=== PATIENT | female | born 1975 | race African-American/Black ===

== ENCOUNTER 2020-10-12 10:05 | Outpatient (REF) | payer OTHER, SELFPAY ==
--- NOTE | ~2020-10-12 | MM_ITS ---
EXAMINATION: MM SCREENING DIGITAL BREAST TOMOSYNTHESIS, BILATERAL CLINICAL INFORMATION: Screening. Asymptomatic. The lifetime risk of breast cancer based on the Tyrer-Cuzick Model is 9%. COMPARISON: Mammography: 10/23/2018, 09/21/2018, 09/11/2015 TECHNIQUE: Digital breast tomosynthesis is performed in both the craniocaudal and mediolateral oblique views along with computer-aided detection (CAD). Synthesized 2D images are generated from the tomosynthesis. Additional bilateral CC and additional bilateral MLO views are provided. FINDINGS: There are scattered areas of fibroglandular density (ACR BI-RADS breast composition Category b). There is fine fibronodular parenchymal pattern similar to prior studies. No developing density or interval dominant nodularity or architectural abnormality. There are no abnormal calcifications. The axilla and skin contours are unremarkable. No significant changes. MM/MM tomosynthesis screening BI IMPRESSION: No mammographic evidence of malignancy. ASSESSMENT: BI-RADS 2: Benign RECOMMENDATION: Routine annual mammography screening. This patient's information was entered into a reminder system with a target due date for their next mammogram.
== END 2020-10-12 10:06 | disposition home or self-care (01) ==
LOC: HO.MAMMO 10:05
PROVIDERS: Visit Provider Nurse Practitioner Primary Care
DX: Z12.31 Encounter for screening mammogram for malignant neoplasm of breast (principal)
CPT/HCPCS: 77063; 77067

== ENCOUNTER 2021-03-10 11:33 | Outpatient (REF) | payer MEDICAID, SELFPAY ==
[2021-03-10 13:44] LABS: COVID-19 Test Positive (Negative); IDNOW Serial# 16C4AD1C
== END 2021-03-10 11:34 | disposition home or self-care (01) ==
LOC: HO.LAB 11:33
PROVIDERS: Visit Provider Internal Medicine
DX: Z20.822 Contact with and (suspected) exposure to COVID-19 (principal)
CPT/HCPCS: 87635; C9803

== ENCOUNTER 2024-10-15 09:06 | Outpatient (REF) | payer MEDICAID, SELFPAY ==
--- OUTSIDE RECORDS SUMMARY | 2006-09-17 20:00 | XMS_ITS | Continuity of Care Document ---
Author Organization deisy [facility] Address [address] [place] [address] Phone Care Team Providers Care Tool Tender Name Role Phone Z-Converted, Provider Unavailable Unavailabl e Medications Medication Instructions Dosage Effective Dates (start - stop) Status Comments Prilosec OTC 20 mg Tab 2 tabs for 1 wk then 1 tab daily - Active Advance Directives Directive Yes / No Effective Date File Name No Information Encounters Encounter Description Practice Location Reason(s) For Visit Diagnoses Date Provider Providers Copied on Encounter [facility], [address] [facility] [address] [address], [place], [place], [id number], [place] tel:[phone] [facility] Abdominal pain, right upper quadrant 7 Z-Convert ed Provider. . [facility], [address] [place] [address] 2,[address], [place], [place], [id number], [place] tel:[phone] 2 Converted Locations No Information 7 Z-Convert [...]
--- NOTE | ~2024-10-15 | XR_ITS ---
EXAMINATION: XR TIBIA AND FIBULA, LEFT CLINICAL INFORMATION: Pain. Other fracture. COMPARISON: None available. TECHNIQUE: AP and lateral views of the left tibia and fibula were obtained. FINDINGS: There is a displaced cortical disruption involving the proximal epiphysis of the fibula resulting in a 1.2 cm gap within the fragments. There is joint space narrowing involving the medial and to a lesser extent lateral compartment of the left knee. The tibia appears intact. Exostosis at the Achilles tendon insertion. Small plantar calcaneal spur. XR/XR tibia fibula LT 2V IMPRESSION: Displaced fracture, likely old, proximal epiphysis of the left fibula. Enthesopathy, Achilles tendon. Bicompartmental osteoarthrosis, left knee. Electronically signed by: Gregory Jacobsen MD 10/15/2024 09:52 AM EDT
--- OUTSIDE RECORDS SUMMARY | 2024-10-15 09:57 | XMS_ITS | Encounter Summary ---
Author Organization [email or web address] [facility] Address [address] [place] [address] Care Team Providers Care Assistant Nurse Manager Name Role Phone Radha Virk Primary Care Provider [phone] Encounter Details Date Type Department Care Team (Late st Contact Info) Description 02/08/[address] [facility] [address] [place] [phone] Taty Addison RN [address] [place] [phone] Social History Tobacco Use Types Packs/Day Years Used Date Smoking Tobacco: Never Assessed Comments Unknown Sex and Gender Information Value Date Recorded Sex Assigned at Female 01/03/2022 10:19 AM EDT Legal Sex Female 10:19 AM EDT Gender Identity Female 01/03/2022 10:19 AM EDT Sexual Orientation Choose not to disclose 2021 10:19 AM EDT documented as of this encounter Plan of Treatment Upcoming Encounters Date Type Department Care Team (Late st Contact Info) Description 12/13/2024 9:15 AM EDT Office Visit [facility] [address] [place] [phone] Radha Virk ANP [address] [place] [address] documented as of this encounter Visit Diagnoses Not on filedocumented in this encounter Care Teams Assistant Nurse Manager Relationship Specialty Start Date End Date Radha Virk ANP [address] [place] [id number] PCP - General Family Medicine 04/10/20 documented as of this encounter
== END 2024-10-15 09:07 | disposition home or self-care (01) ==
LOC: HO.HOSX 09:06
PROVIDERS: Visit Provider Physician Assistant
DX: S82.832A Other fracture of upper and lower end of left fibula, initial encounter for closed fracture (principal); W19.XXXA Unspecified fall, initial encounter
CPT/HCPCS: 73590; 99212

== ENCOUNTER 2024-10-15 09:32 | Outpatient (AMB) | payer MEDICAID, SELFPAY ==
--- NOTE | 2024-10-15 09:46 | MHC.OFFVIS ---
Vital Signs 10/15/24 09:52 Height 5 ft 6 in Weight 270 lb BMI 43.6 Handedness Right Intake Visit Reasons: left displaced fibular head fracture, DOI 09/21/24 Intake Note: Kate is a 49 year old female who presents today as a new patient for evaluation of a left displaced fibular head fracture, DOI 09/21/24. Per [facility] referral, patient was evaluated at [facility] and sent home, diagnosed with a bruised leg - x-rays were fine . She states that she bumped into something and she fell. Patient reported to PCP persistent pain and inability to bear weight due to knee pain. She reports her pain is a 5 or 6 on the pain scale. Patient has tried Tylenol and meloxicam 15mg with mild relief. Allergies Seafood Allergy (Mild, Uncoded 11/21/19 17:37) RASH/SWELLING shellfish Allergy (Mild, Uncoded 10/15/24 09:51) Unknown HPI HPI left displaced fibular head fracture, DOI 09/21/24: Details: Ms. Solano this is a 49-year-old female who presents to the office today for evaluation of a left fibular head injury that she sustained on 09/21/2024 after a mechanical fall. Patient was evaluated at [facility] and diagnosed with a bone contusion per the [facility] referred. Patient reports that she presented to her PCP office after persistent pain and inability to bear weight on the left knee. Her pain has slightly improved as she presents to the office today but she continues to use crutches to assist with ambulation. She has tried Tylenol and meloxicam 15 mg with mild relief. 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 Tenderness to palpation over the fibular head. Full range of motion. NVI. Psych Appearance: grossly normal Mental Status: mental status grossly normal Attitude: cooperative Office Procedures AMB Fracture Care Fracture Billing Code: Fracture Billing Code Assessment & Plan Assessment & Plan (1) Closed fracture of head of left fibula: Code(s): S82.832A - Other fracture of upper and lower end of left fibula, initial encounter for closed fracture Category: Medical Plan Ms. Solano this is a 49-year-old female who presents to the office today for evaluation of a left fibular head injury that she sustained on 09/21/2024 after a mechanical fall. Patient was evaluated at [facility] and diagnosed with a bone contusion per the [facility] referred. Patient reports that she presented to her PCP office after persistent pain and inability to bear weight on the left knee. Her pain has slightly improved as she presents to the office today but she continues to use crutches to assist with ambulation. She has tried Tylenol and meloxicam 15 mg with mild relief. While in the office today, I have recommended the patient continue weight-bearing as tolerated with the use of crutches as needed. The goal is for her to slowly wean off the crutches to full weight-bearing without assistive devices. Patient was encouraged to work on gentle range of motion. Patient was provided an out-of-work note until her follow up appointment in 5 weeks. Follow up in 5 weeks, sooner if needed. X-rays of the left tibia and fibula which were obtained while in the office today and were reviewed by me, Dinah Peterson PA-C, revealed displaced left fibular head fracture. Coding Level of Care Code New Pt Level 3 (90928) Diagnoses Closed fracture of head of left fibula S82.832A CPT Codes Fracture Care - Fracture Billing Code: Fracture Billing Code ([id number])
[2024-10-15 09:52] VITALS: BMI 43.6
== END 2024-10-15 10:35 | disposition home or self-care (01) ==
LOC: HO.HOS 09:32
PROVIDERS: PCP Nurse Practitioner Family; Visit Provider Physician Assistant
DX: S82.832A Other fracture of upper and lower end of left fibula, initial encounter for closed fracture (principal)
CPT/HCPCS: 99203

== ENCOUNTER → 2024-10-15 09:34 | Outpatient (BNV) | payer MEDICAID, SELFPAY | PROVIDERS: Visit Provider Radiology Diagnostic Radiology | DX: S82.832A Other fracture of upper and lower end of left fibula, initial encounter for closed fracture (principal) | CPT/HCPCS: 73590 ==

== ENCOUNTER 2024-11-22 07:57 | Outpatient (REF) | payer MEDICAID, SELFPAY ==
--- OUTSIDE RECORDS SUMMARY | 2006-09-17 20:00 | XMS_ITS | Continuity of Care Document ---
Author Organization deisy [facility] Address [address] [place] [address] Phone Care Team Providers Care Surveillance Officer Name Role Phone Z-Converted, Provider Unavailable Unavailabl e Medications Medication Instructions Dosage Effective Dates (start - stop) Status Comments Prilosec OTC 20 mg Tab 2 tabs for 1 wk then 1 tab daily - Active Advance Directives Directive Yes / No Effective Date File Name No Information Encounters Encounter Description Practice Location Reason(s) For Visit Diagnoses Date Provider Providers Copied on Encounter [facility], [address], [place], [place], [id number], [place] tel:[phone] [facility] Abdominal pain, right upper quadrant 7 Z-Convert ed Provider. . [facility], [address] [place] [address] 2,[address], [place], [place], [id number], [place] tel:[phone] 2 Converted Locations No Information 7 Z-Convert ed Provider. . Family History Family Member Type Diagnosis Age At Onset No Information Payers Payer name Insurance type Covered constitution party ID Authoriza tion(s) No Information Social [...]
--- NOTE | ~2024-11-22 | XR_ITS ---
EXAMINATION: XR TIBIA AND FIBULA, LEFT CLINICAL INFORMATION: Other fracture of upper and lower end of the left fibula COMPARISON: 10/15/2024. TECHNIQUE: AP and lateral views of the left tibia and fibula were obtained. FINDINGS: Redemonstration of avulsion fracture of the proximal fibular head, with approximately 10 mm of distraction. There is minimal comminution. No gross bony healing identified on today's examination. There is no additional fracture or focal bony abnormality. The knee joint demonstrates mild medial compartment joint space narrowing with minimal marginal osteophytic spurs. Mild spurring of the tibial spines. Lateral and patellofemoral compartment is preserved. No knee joint effusion. Soft tissues demonstrate mild prominence overlying the tibial tuberosity, unchanged. There are venous varicosities medially in the proximal leg. Soft tissues otherwise normal. XR/XR tibia fibula LT 2V IMPRESSION: Redemonstration of avulsion fracture of the left fibular head with minimal comminution. No gross bony healing evident on today's examination. Electronically signed by: Steve Bradford MD 11/22/2024 09:12 AM EDT
--- OUTSIDE RECORDS SUMMARY | 2024-11-23 07:59 | XMS_ITS | Clinical Summary ---
Author Organization [employer] Address [address] [place] [address] 7 [place] [address] Care Team Providers Care Liquor Clerk Name Role Phone Nita Virk SAWYER Primary Care Provider [phone] Allergies Active Allergy Reactions Criticality Noted Date [...] Team Description 11/06/2024 Population Health Risk Score [facility] (C3) Department [address] [phone] Provider, Population Health Generic 10/28/2024 Refill [facility] [address] [place] [phone] Sylvain Flores MD Closed fracture fibula, head, left, initial encounter 10/03/[address] [address] Nita Virk ANP Durable Medical Equipment 10/01/2024 9:00 AM EDT Office Visit [facility] [address] [place] [address] Sylvain Flores MD Closed fracture fibula, head, left, initial encounter (Primary Dx); Essential hypertension 10/01/2024 Telephone [facility] [address] [place] [address] Nita Virk ANP Referral 10/01/2024 Travel 09/30/2024 Telephone [facility] [address] [place] [phone] Nita Virk ANP Chart Prep 09/30/[address] [address] Nita Virk ANP Nurse Triage; ER Follow-up [...] Description 12/13/2024 9:15 AM EDT Office Visit [facility] [address] [place] [address] Nita Virk, ANP [address] [place] [address] Health Maintenance Due Date Last Done Comments [...] result details [facility] Procedure: Mammography Report 1 [facility] BI PROCEDURES Final Result * HPV mRNA E6/E7 (05/31/2016 10:15 AM EDT) HPV mRNA E6/E7 Not Detected NOT DETECTED [facility] Comment: This test was performed using the APTIMA(R) HPV Assay ([employer] This assay detects E6/E7 viral messenger RNA (mRNA) from 14 high-risk HPV types (16,18,31,33,35,39,45,51, 52,56,58,59,66,68). For additional information please refer to: http://education.Likeastore.[employer]/faq/RME768a7 (This link is being provided for informational/ educational purposes only.) Test Performed by [facility], [facility], [address] [place] [id number] Gerson Neal M.D., Ph.D., Director of Laboratories , [place] [id number] Please note: Effective 11/16/2015, HPV testing will be performed using [employer]'s APTIMA test which targets mRNA. Detecting mRNA instead of DNA, as in older methods, offers significant improvements in specificity. 05/31/2016 10:1 5 AM EDT us Livia Lopez NP HISTORICAL/NON ORDERABLE LABS Fi nal Result [facility] [address] from Last 3 Months or Most Recently Relevant to Health Maintenance Insurance [facility]SN [facility]IAL [facility] Care Teams Liquor Clerk Relationship Specialty Start Date End Date Nita Virk ANP [address] [place] [phone] PCP - General Family Medicine 04/10/20
--- OUTSIDE RECORDS SUMMARY | 2024-11-23 07:59 | XMS_ITS | Encounter Summary ---
Author Organization [email or web address] [facility] Address [address] [place] [address] Care Team Providers Care Welding Lead Burner Name Role Phone Radha Virk Primary Care Provider [phone] Encounter Details Date Type Department Care Team (Late st Contact Info) Description 02/08/2022 Telephone [facility] [address] [place] [address] Taty Addison RN [address] [place] [phone] Social History Tobacco Use Types Packs/Day Years [...] Description 12/13/2024 9:15 AM EDT Office Visit [facility] [address] [place] [phone] Radha Virk ANP [address] [place] [address] documented as of this encounter Visit Diagnoses Not on filedocumented in this encounter Care Teams Welding Lead Burner Relationship Specialty Start Date End Date Radha Virk ANP [address] [place] [phone] PCP - General Family Medicine 04/10/20 documented as of this encounter
== END 2024-11-22 07:58 | disposition home or self-care (01) ==
LOC: HO.HOSX 07:57
PROVIDERS: Visit Provider Physician Assistant
DX: S82.832D Other fracture of upper and lower end of left fibula, subsequent encounter for closed fracture with routine healing (principal); X58.XXXD Exposure to other specified factors, subsequent encounter
CPT/HCPCS: 73590; 99212

== ENCOUNTER 2024-11-22 08:57 | Outpatient (AMB) | payer MEDICAID, SELFPAY ==
--- NOTE | 2024-11-22 09:11 | MHC.OFFVIS ---
Intake Visit Reasons: OV-left displaced fibular head fracture, DOI 09/21 Intake Note: Kate is a 49 year old female who presents today for a follow up of her left displaced fibular head fracture, DOI 09/21/24. At her last visit she was recommend to continue to weight-bear as tolerated with the use of crutches for balance. The goal is to wean off of the crutches. Patient reports she is still in pain and she is wearing her knee brace also using her crutches all the time for support. Allergies Seafood Allergy (Mild, Uncoded 11/21/19 17:37) RASH/SWELLING shellfish Allergy (Mild, Uncoded 10/15/24 09:51) Unknown HPI HPI OV-left displaced fibular head fracture, DOI 09/21: Details: Ms. Solano is a 49-year-old female who presents to the office today for follow-up of a left proximal at displaced fibular head fracture. Date of injury was 09/21/2024. Patient states that she continues to have pain and difficulty with weight-bearing on the left lower extremity. She also reports some stiffness with flexing and extending the knee. She is using a knee sleeve for some compression and stabilization. She reports that on some occasions she does have giving way of the left knee. 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 Tenderness to palpation over the fibular head. Full range of motion. Unable to attempt posterior drawer due to patient pain and guarding. NVI. Psych Appearance: grossly normal Mental Status: mental status grossly normal Attitude: cooperative Assessment & Plan Assessment & Plan (1) Closed fracture of head of left fibula: Code(s): S82.832A - Other fracture of upper and lower end of left fibula, initial encounter for closed fracture Category: Medical Plan Ms. Solano is a 49-year-old female who presents to the office today for follow-up of a left proximal at displaced fibular head fracture. Date of injury was 09/21/2024. Patient states that she continues to have pain and difficulty with weight-bearing on the left lower extremity. She also reports some stiffness with flexing and extending the knee. She is using a knee sleeve for some compression and stabilization. She reports that on some occasions she does have giving way of the left knee. 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 While in the office today, I have recommended that the patient begin physical therapy to work on gentle range of motion, gait training and weight-bearing as tolerated without the use of crutches. I have also provided the patient with a wrap pop knee brace for some additional stability as she reports episodes of giving way especially with fatigue. Repeat x-rays were obtained in the office today and redemonstrate the displaced proximal fibular head fracture. I also appreciate a possible avulsion fracture avulsion fracture of PCL on x-ray imaging that was obtained. With the patient's continued pain and difficulty with ambulation I have ordered an MRI to further evaluate the integrity of the left knee and surrounding structures. She will follow up in 6 weeks after MRI imaging has been obtained and she has begun physical therapy, sooner if needed. I have given the patient an out-of-work note until follow up. Orders: Orders XR tibia fibula LT 2V Today S82.832A - Other fracture of upper and lower end of left fibula, initial encounter for closed fracture Coding Level of Care Code Est Pt Level 3 (29997) Diagnoses Closed fracture of head of left fibula S82.832A
--- OUTSIDE RECORDS SUMMARY | 2024-11-22 09:40 | XMS_ITS | Clinical Summary ---
Author Organization [employer] Address [address] [place] [address] 7 [place] [address] Care Team Providers Care Turn Out Name Role Phone Nita Virk SAWYER Primary Care Provider [phone] Allergies Active Allergy Reactions Criticality Noted Date Comments Fish-Derived Products Hives Medications Blood Pressure kitIndications: Benign essential HTN 1 kit in the morning. 1 kit 3 Active hydroCHLOROthia zide (Microzide) 12.5 MG capsule Take 12.5 mg by mouth in the morning. 3 Active meloxicam (Mobic) 15 MG tabletIndicatio ns:Closed fracture fibula, head, left, initial encounter TAKE 1 TABLET (15 MG) BY MOUTH ONCE PER DAY. 30 tablet 5 Active meloxicam (Mobic) 15 MG tabletIndicatio ns:Closed fracture fibula, head, left, initial encounter Take 1 tablet (15 mg) by mouth Once per day. 30 tablet 5 10/29/19 25 Discontinued Active Problems Problem Noted Date Diagnosed Date Closed fracture fibula, head, left, initial enco unter 10/01/2024 Assessment & Plan (10/01/2024 9:22 AM EDT): Patient of nita Virk seen today for an ER follow up Pt seen 09/21/2024 at [facility] x-rays showed: a Displaced fibular head fracture with adjacent soft tissue swelling. The ER notes states that patient was sent home with a diagnosis of bruised leg and that x-rays were fine. Pt here with c/o persistent pain Plan immobilization with hinged knee brace -Non weight bearing 4-6 weeks -[facility] Ortho consult for consideration of surgical intervention Essential hypertension 08/31/2017 Assessment & Plan (10/01/2024 9:33 AM EDT): BP elevated due to pain Will start an NSAID Vitamin D deficiency 01/07/2016 Morbid obesity 09/11/2015 Encounters Date Type Department Care Team Description 11/06/2024 Population Health Risk Score [facility] (C3) Department [address] [id number] Provider, Population Health Generic 10/28/2024 Refill [facility] [address] [place] [phone] Sylvain Flores MD Closed fracture fibula, head, left, initial encounter 10/03/[address] [address] Nita Virk ANP Durable Medical Equipment 10/01/2024 9:00 AM EDT Office Visit [facility] [address] [place] [address] Sylvain Flores MD Closed fracture fibula, head, left, initial encounter (Primary Dx); Essential hypertension 10/01/2024 Telephone [facility] [address] [place] [address] Nita Virk ANP Referral 10/01/2024 Travel 09/30/2024 Telephone [facility] [address] [place] [address] Nita Virk ANP Chart Prep 09/30/[address] [address] Nita Virk ANP Nurse Triage; ER Follow-up from Last 3 Months Immunizations Immunization Administration Dates Next Due Hep B, Adolescent or Pediatric 08/12/2010 Hep B, adult 08/19/2013,11/09/2012 Influenza injectable quadriv alent IIV4 with preservative 01/07/2016 Influenza injectable quadrivalent preservative f ree 12/03/2020 Influenza, Split (incl. purified surface antigen ) 11/09/2012 MMR 09/15/2009 Pfizer Covid-19 Vaccine 12+ jimenez-sucrose ([place] C ap) 05/21/2021 TD (adult), 2 Lf tetanus tox oid, preservative free, adsorbed 12/03/2020,09/09/2008 Tdap 08/12/2010 Varicella 09/15/2009 Social History Tobacco Use Types Packs/Day Years Used Date Smoking Tobacco: Never Smokeless Tobacco: Never Tobacco Cessation:Counseling Given: Not Answered Alcohol Use Standard Drinks/Week Comments Never 0 (1 standard drink = 0.6 oz pur e alcohol) Comments Unknown Sex and Gender Information Value Date Recorded Sex Assigned at Female 01/03/2022 10:19 AM EDT Legal Sex Female 10:19 AM EDT Gender Identity Female 01/03/2022 10:19 AM EDT Sexual Orientation Choose not to disclose 2021 10:19 AM EDT Last Filed Vital Signs Vital Sign Reading Time Taken Comments Blood Pressure 148/86 10/01/2024 9:32 AM EDT Pulse 83 10/01/2024 9:16 AM EDT Temperature 37.2 C (98.9 F) 10/01/2024 9:16 AM EDT Respiratory Rate 20 10/01/2024 9:16 AM EDT Oxygen Saturation 97% 10/01/2024 9:16 AM EDT Inhaled Oxygen Concentration - - Weight 121 kg (267 lb 6.4 oz) 08/05/2022 3:09 PM EDT Height 165.7 cm (5' 5.24 ) 08/05/2022 3:09 PM ED T Body Mass Index 44.17 08/05/2022 3:09 PM EDT Plan of Treatment Upcoming Encounters Date Type Department Care Team (Late st Contact Info) Description 12/13/2024 9:15 AM EDT Office Visit [facility] [address] [place] [address] Nita Virk, ANP [address] [place] [address] Health Maintenance Due Date Last Done Comments CT Colonography 1973 Colonoscopy 1973 Colorectal Cancer Screening 1973 Depression Screening 1973 FIT DNA/Cologuard 1973 FIT 1973 FOBT 1973 HIV Screening 1973 Lipid Panel 1973 SDOH Screening 1973 Sigmoidoscopy 1973 Alcohol/Substance Use Screening 1985 Family Planning (PISQ) 01/06/1988 Hepatitis C Screening 1991 Pap Smear 1994 Hepatitis B Vaccines (3 of 3 - 19+ 3-dose series) 10/14/2013 08/19/2013, 11/09/2012, 08/12/2010 Cervical Cancer Screening 05/31/2021 HPV/Cotest 05/31/2021 05/31/2016 Mammogram 10/12/2022 10/12/2020, 10/23/2018, 09/24/2018 Pneumococcal Vaccine: 50+ Years (1 of 1 - PCV) 2023 Zoster Vaccines (1 of 2) 2023 COVID-19 Vaccine (4 - 2024-2 6 season) 2024 05/21/2021, 11/05/2020, 10/15/2020 Influenza Vaccine (#1) 2024 , 01/07/2016, 11/09/2012 Disability Screening 10/01/2025 10/01/2024 Tobacco Screening 10/01/2025 10/01/2024 DTaP/Tdap/Td Vaccines (3 - T d or Tdap) 12/03/2030 12/03/2020, 08/12/2010, 09/09/2008 RSV Patients and Patients Aged 60 years or older (1 - 1-dose 75+ series) 01/06/2048 HIB Vaccines Aged Out No longer eligi ble based on patient's age to complete this topic HPV Vaccines Aged Out No longer eligi ble based on patient's age to complete this topic Hepatitis A Vaccines Aged Out No long er eligible based on patient's age to complete this topic IPV Vaccines Aged Out No longer eligi ble based on patient's age to complete this topic Meningococcal B Vaccine Aged Out No l onger eligible based on patient's age to complete this topic Meningococcal Vaccine Aged Out No carmel destin eligible based on patient's age to complete this topic RSV under 20 months Aged Out No longe r eligible based on patient's age to complete this topic Rotavirus Vaccines Aged Out No longer eligible based on patient's age to complete this topic Procedures Procedure Name Priority Date/Time Associated Diagnosis Comments MAMMOGRAM GENERIC Routine 10/12/2020 10: 00 AM EDT ZZZ HISTORICAL HPV MRNA E6/E7 Routine 05/31/2016 10:15 AM EDT from Last 3 Months or Most Recently Relevant to Health Maintenance Results * Mammography Report 1 (10/12/2020 10:00 AM EDT) Anatomical Region Laterality Modality Breast Bilateral Mammography 10/12/2020 10:0 0 AM EDT Narrative 10/13/2020 9:02 AM EDT Refer to the Notes tab for result details Legacy Procedure: Mammography Report 1 Procedure Note Provider, MD Guevara - 05/29/2022 Refer to the Notes tab for result details Legacy Procedure: Mammography Report 1 [facility] BI PROCEDURES Final Result * HPV mRNA E6/E7 (05/31/2016 10:15 AM EDT) HPV mRNA E6/E7 Not Detected NOT DETECTED [facility] Comment: This test was performed using the APTIMA(R) HPV Assay ([employer] This assay detects E6/E7 viral messenger RNA (mRNA) from 14 high-risk HPV types (16,18,31,33,35,39,45,51, 52,56,58,59,66,68). For additional information please refer to: http://education.MySQUAR.Sidelines/faq/JQB404l2 (This link is being provided for informational/ educational purposes only.) Test Performed by [facility], [facility], [address] [place] [id number] Gerson Neal M.D., Ph.D., Director of Laboratories , [place] [id number] Please note: Effective 11/16/2015, HPV testing will be performed using [employer]'s APTIMA test which targets mRNA. Detecting mRNA instead of DNA, as in older methods, offers significant improvements in specificity. 05/31/2016 10:1 5 AM EDT us Livia Lopez NP HISTORICAL/NON ORDERABLE LABS Fi nal Result [facility] [address] from Last 3 Months or Most Recently Relevant to Health Maintenance Insurance HSN PARTIAL [facility] Care Teams Turn Out Relationship Specialty Start Date End Date Nita Virk ANP [address] [place] [phone] PCP - General Family Medicine 04/10/20
--- OUTSIDE RECORDS SUMMARY | 2024-11-22 09:40 | XMS_ITS | Encounter Summary ---
Author Organization [employer] [facility] Address [address] [place] [address] Care Team Providers Care Machining Department Supervisor Name Role Phone Radha Virk Primary Care Provider [phone] Encounter Details Date Type Department Care Team (Late st Contact Info) Description 02/08/2022 Telephone [facility] [address] [place] [phone] Taty Addison RN [address] [place] [phone] Social History Tobacco Use Types Packs/Day Years [...] Description 12/13/2024 9:15 AM EDT Office Visit [facility] [address] [place] [phone] Radha Virk ANP [address] [place] [address] documented as of this encounter Visit Diagnoses Not on filedocumented in this encounter Care Teams Machining Department Supervisor Relationship Specialty Start Date End Date Radha Virk ANP [address] [place] [phone] PCP - General Family Medicine 04/10/20 documented as of this encounter
== END 2024-11-22 09:48 | disposition home or self-care (01) ==
LOC: HO.HOS 08:57
PROVIDERS: Visit Provider Physician Assistant
DX: S82.832A Other fracture of upper and lower end of left fibula, initial encounter for closed fracture (principal)
CPT/HCPCS: 99213

== ENCOUNTER → 2024-11-22 08:58 | Outpatient (BNV) | payer MEDICAID, SELFPAY | PROVIDERS: Visit Provider Radiology Diagnostic Radiology | DX: S82.832D Other fracture of upper and lower end of left fibula, subsequent encounter for closed fracture with routine healing (principal) | CPT/HCPCS: 73590 ==

== ENCOUNTER 2024-12-16 11:43 | Outpatient (REF) | payer MEDICAID, SELFPAY ==
--- OUTSIDE RECORDS SUMMARY | 2024-12-13 09:15 | XMS_ITS | Encounter Summary ---
Author Organization [email or web address] Address [address] [place] [address] [address] [address] Care Team Providers Care Label Stitcher Name Role Phone Radha Virk Primary Care Provider [phone] Reason for Referral * Imaging (Routine) - Authorized Specialty Diagnoses / Procedures Referred By Randy drake Referred To Contact Radiology Diagnoses Screening mammogram for breast cancer Procedures BI Mammogram Screening Bilateral Radha Virk ANP [address] [place] [address] Phone: tel: fax: [address] Phone: tel: fax: Referral ID Status Reason Start Date Expiration Date V isits Requested Visits Authorized [id number] Authorized 12/13/2024 12/13/2025 1 1 * Imaging (Routine) - Authorized Specialty Diagnoses / Procedures Referred By Randy drake Referred To Contact Radiology Diagnoses Closed fracture of head of left fibula with routine healing, subsequent encounter Premature menopause Procedures BD DEXA Axial Radha Virk ANP [address] [place] [address] Phone: tel: fax: [address] Phone: tel: fax: Referral ID Status Reason Start Date Expiration Date V isits Requested Visits Authorized [id number] Authorized 12/13/2024 12/13/2025 1 1 Reason for Visit * Reason Comments Follow-up Encounter Details Date Type Department Care Team (Saleem durham Contact Info) Description 12/13/2024 9:15 AM EDT Office Visit [facility] [address] [place] [address] Radha Virk ANP [address] [place] [address] Closed fracture of head of left fibula with routine healing, subsequent encounter (Primary Dx); Healthcare maintenance; Screening for cervical cancer; Screening mammogram for breast cancer; Need for hepatitis B screening test; Routine screening for STI (sexually transmitted infection); Lipid screening; Essential hypertension; Vitamin D deficiency; Benign essential HTN; Premature menopause Social History Tobacco Use Types Packs/Day Years Used Date Smoking Tobacco: Never Smokeless Tobacco: Never Alcohol Use Standard Drinks/Week Comments Never 0 (1 standard drink = 0.6 oz pur e alcohol) Depression Answer Date Recorded Patient Health Questionnaire-9 Score 1 12/13/2024 Patient Health Questionnaire-9 Score 1 12/13/2024 Last PHQ-9: Questionnaire Data Not on file 1 Housing Stability Answer Date Recorded What is your housing situation today? I have [employer] 12/13/[address] you li ve. Do you have problems with any of the following? None of the above 12/13/2024 Food Insecurity Answer Date Recorded Within the past 12 months, y ou worried that your food would run out before you got money to buy more: Never True 12/13/2024 Within the past 12 months,th e food you bought just didn't last and you didn't have enough money to get more: Never True 12/2024 Transportation Answer Date Recorded In the past 12 months, has l ack of transportation kept you from medical appts, meetings, work or from getting things needed for daily living? No 12/13/2024 Utilities Answer Date Recorded In the past 12 months, has t he electric, gas, oil or water company threatened to shut off services in your home? No 12/13/2024 Depression Answer Date Recorded Patient Health Questionnaire-2 Score 0 12/13/2024 Internet Access Answer Date Recorded Internet Access Q1 Yes 12/13/2024 Internet Access Q2 Not on file 12/13/2024 Comments Unknown Sex and Gender Information Value Date Recorded Sex Assigned at Female 01/03/2022 10:19 AM EDT Legal Sex Female 10:19 AM EDT Gender Identity Female 01/03/2022 10:19 AM EDT Sexual Orientation Choose not to disclose 2021 10:19 AM EDT documented as of this encounter Last Filed Vital Signs Vital Sign Reading Time Taken Comments Blood Pressure 150/90 12/13/2024 10:04 AM EDT Pulse 75 12/13/2024 9:42 AM EDT Temperature 36.7 C (98.1 F) 12/13/2024 9:42 AM EDT Respiratory Rate 12 12/13/2024 9:42 AM EDT Oxygen Saturation 97% 12/13/2024 9:42 AM EDT Inhaled Oxygen Concentration - - Weight 124 kg (274 lb 2 oz) 12/13/2024 9:42 AM E DT Height 165.7 cm (5' 5.24 ) 12/13/2024 9:42 AM ED T Body Mass Index 45.28 12/13/2024 9:42 AM EDT documented in this encounter Functional Status * Over the past 2 weeks, how often have you been bothered by any of the following problems? Question Answer Date of Assessment Author Patient Health Questionnaire -2 Score 0 12/13/2024 10:47 AM EDT Kwaku Brooks MA * Little interest or pleasure in doing things Answer Date of Assessment Author Not at all 12/13/2024 10:47 AM EDT Kwaku Brooks MA * Feeling down, depressed, or hopeless Answer Date of Assessment Author Not at all 12/13/2024 10:47 AM EDT Kwaku Brooks MA * Trouble falling or staying asleep, or sleeping too much Answer Date of Assessment Author Not at all 12/13/2024 10:47 AM EDT Kwaku Brooks MA * Feeling tired or having little energy Answer Date of Assessment Author Several days 12/13/2024 10:47 AM EDT Kwaku Brooks MA * Poor appetite or overeating Answer Date of Assessment Author Not at all 12/13/2024 10:47 AM Kwaku Bell MA * Feeling bad about yourself - or that you are a failure or have let yourself or your family down Answer Date of Assessment Author Not at all 12/13/2024 10:47 AM Kwaku Bell MA * Trouble concentrating on things, such as reading the newspaper or watching television Answer Date of Assessment Author Not at all 12/13/2024 10:47 AM Kwaku Bell MA * Moving or speaking so slowly that other people could have noticed? Or the opposite - being so fidgety or restless that you have been moving around a lot more than usual. Answer Date of Assessment Author Not at all 12/13/2024 10:47 AM Kwaku Bell MA * Thoughts that you would be better off or hurting yourself in some way Answer Date of Assessment Author Not at all 12/13/2024 10:47 AM Kwaku Bell MA * Patient Health Questionnaire-9 Score Answer Date of Assessment Author 1 12/13/2024 10:47 AM Kwaku Bell MA * How difficult have these problems made it for you to do your work, take care of things at home, or get along with other people? Answer Date of Assessment Author Not difficult at all 12/13/2024 10:47 AM Kwaku Li MA * Over the last 2 weeks, how often have you been bothered by any of the following problems? Question Answer Date of Assessment Author Feeling nervous, anxious, or on edge 0 12/13/2024 10:47 AM Kwaku Bell MA Not being able to stop or co ntrol worrying 0 12/13/2024 10:47 AM Kwaku Bell MA Worrying too much about diff erent things 0 12/13/2024 10:47 AM Kwaku Bell MA Trouble relaxing 0 12/13/2024 10:47 AM Kwaku Bell MA Being so restless that it is hard to sit still 0 12/13/2024 10:47 AM Kwaku Bell MA Becoming easily annoyed or irritable 0 12/13/2024 10:47 AM EDT Kwaku Brooks MA Feeling afraid as if somethi ng awful might happen 0 12/13/2024 10:47 AM EDT Kwaku Brooks MA PAULO-7 Total Score 0 12/13/2024 10:47 AM EDT Kwaku Brooks MA documented as of this encounter Patient Instructions * Patient Instructions* SAWYER Peña - 12/13/2024 9:15 AM EDT Based on our discussion, I have outlined the following instructions for you: - Keep putting a small amount of weight on your left leg, as you have been told. Continue plan per orthopedics. - Get a bone density scan to check your bone strength and risk for osteoporosis. Someone from [facility] will call to schedule this. If you do not hear from them, call: [facility] Centralized [phone] - Get fasting blood work done - We will discuss colon cancer screening at follow-up visit - we will likely need to re-start blood pressure medication, but please measure your blood pressureat home and write it down, a nurse will call you in 2 weeks to review the numbers. Eat a low salt diet. - Use the blood pressure monitor at home and share your readings during the nursing follow-up call.Goal is to have blood pressure at 120/80 mmHg or less. - Keep taking your vitamin D3 supplement. Next appointment(s): - Pap smear with controls project engineer - Mammogram - Bone density scan at hospital Thank you again for your visit, and we look forward to supporting you in your journey to better health. documented in this encounter Progress Notes * SAWYER Peña - 12/13/2024 9:15 AM EDT Subjective Patient ID: Kate Solano is a 49 y.o. female who presents for f/u. HPI PM hypertension PT last visit w/ 08/2022 Recent visit w/ Dr. Tracey 10/01/24 s/p ED visit [facility] 09/22/24 for L displaced fibula head fx, seen by ortho who has since recommended pt return to weight bearing Due for all HM activities Mammo & DEXA - accepts Pap - wants CNM Crc screening - defers today HIV/HCV IZ PCV20, flu, COVID, shingrix, hep b status unk Declines IZ today Kate Solano, 49 years Knee Pain and Injury - History of knee issues prior to visit - Recent fall resulting in fibula fracture - Currently using crutches - Advised by orthopedics to avoid putting too much weight on leg Hypertension - History of high blood pressure - Previously prescribed hydrochlorothiazide and losartan, but has not been taking blood pressure medications for a while - Reports feeling well despite not taking medication Pruritus - Reports generalized body itchiness Menopause - Menstrual periods stopped around [id number], at age 40-41 - Early menopause diagnosed - Denies receiving hormone therapy Misc - Reports feeling sick after previous flu vaccinations - Denies current use of blood pressure medications - Currently taking meloxicam and vitamin D3 Review of Systems Objective BP (!) 150/90 (BP Location: Left arm, Patient Position: Sitting, BP Cuff Size: Large adult) Pulse75 Temp 98.1 ??F (36.7 ??C) (Oral) Resp 12 Ht 5' 5.24 (1.657 m) Wt 274 lb 2 oz (124 kg) SpO2 97% BMI 45.28 kg/m?? Physical Exam Constitutional: General: She is not in acute distress. Appearance: Normal appearance. She is obese. She is not ill-appearing. HENT: Head: Normocephalic and atraumatic. Eyes: General: No scleral icterus. Extraocular Movements: Extraocular movements intact. Pupils: Pupils are equal, round, and reactive to light. Cardiovascular: Rate and Rhythm: Normal rate and regular rhythm. Pulmonary: Effort: Pulmonary effort is normal. No accessory muscle usage or respiratory distress. Neurological: Mental Status: She is alert and oriented to person, place, and time. Psychiatric: Mood and Affect: Mood normal. Behavior: Behavior normal. Assessment/Plan Diagnoses and all orders for this visit: Closed fracture of head of left fibula with routine healing, subsequent encounter - Vitamin D, 25-Hydroxy, Total, Immunoassay; Future - BD DEXA Axial; Future Healthcare maintenance - Hemoglobin A1c; Future Screening for cervical cancer To be scheduled w/ CNM per pt preference Screening mammogram for breast cancer - BI Mammogram Screening Bilateral; Future Need for hepatitis B screening test - Hepatitis B Core Antibody, Total; Future - Hepatitis B surface antigen, EIA; Future - Hepatitis B Surface Antibody, Qualitative; Future Routine screening for STI (sexually transmitted infection) - Hepatitis C Antibody with Reflex to HCV, RNA, Quantitative, Real-Time PCR; Future - HIV-1/2 Antigen and Antibodies, Fourth Generation, with Reflexes; Future Lipid screening - Lipid Panel, Standard; Future Essential hypertension - Comprehensive Metabolic Panel; Future - Albumin, Random Urine W/Creatinine; Future Vitamin D deficiency - Vitamin D, 25-Hydroxy, Total, Immunoassay; Future Benign essential HTN - Blood Pressure kit; 1 kit Once per day. Premature menopause - BD DEXA Axial; Future Assessment & Plan Closed fracture of head of left fibula with routine healing, subsequent encounter: - Healing fracture of left fibula following fall, concern for bone fragility due to low-impact mechanism. - Continue limited weight-bearing as per orthopedics. Bone density scan ordered to evaluate for osteoporosis. Healthcare maintenance: - Due for multiple routine health maintenance screenings. - Schedule Pap smear with female provider. Ordered screening mammogram. Ordered fasting blood work including HIV and hepatitis C testing. Recommended colonoscopy due to age. She wants to defer c-scope discussion to follow-up. Screening for cervical cancer: - Due for cervical cancer screening; last Pap smear in 2019. - Pap smear to be performed by controls project engineer. Screening mammogram for breast cancer: - Due for screening mammogram. - Mammogram ordered. Routine screening for STI (sexually transmitted infection): - HIV and hepatitis C screening recommended as part of routine STI screening. - HIV and hepatitis C tests included in blood work. Lipid screening: - Due for routine lipid screening. - Lipid panel included in fasting blood work. Essential hypertension: - Persistent elevated blood pressure, not currently on antihypertensive medication. - Hydrochlorothiazide prescription likely will be refilled, declines this today b/c she feels well.Stressed this does not indicate BP control, hypertension as 'silent killer'. She will check home monitoring. Nursing follow-up call scheduled to review home blood pressure readings. Goal blood pressure set at 120/80 mmHg. Plan to re-start hydrochlorothiazide at 25mg if above 120/80 At end of appointment pt states does want to re-start, will send refill. Vitamin D deficiency: - Taking vitamin D3 supplementation. Benign essential HTN: - Diagnosis of benign essential hypertension confirmed. - See Essential hypertension. Premature menopause: - Menopause occurred at age 40-41, increasing risk for osteoporosis. - Bone density scan ordered to assess for osteoporosis. Prescription - Hydrochlorothiazide, refill, daily Appointments - Pap smear with controls project engineer - Mammogram - Bone density scan at hospital This note was drafted using Ambient (AI) technology. The patient/patient's guardian has been informed and has consented to the use of this technology: Yes documented in this encounter Plan of Treatment Upcoming Encounters Date Type Department Care Team (Late st Contact Info) Description 12/30/2024 9:30 AM EDT Clinical Support [facility] [address] [place] [id number] 01/16/2025 9:00 AM EST Procedure Visit [address] [id number] Yisel Viera, SY [address] [place] [address] Scheduled Orders Name Type Priority Associated Diagnoses Orde r Schedule Hepatitis B Core Antibody, Total Lab Routine Need for hepatitis B screening test Expected: 12/13/2024 (Approximate), Expires: 12/13/2025 Hepatitis B surface antigen, EIA Lab Routine Need for hepatitis B screening test Expected: 12/13/2024 (Approximate), Expires: 12/13/2025 Hepatitis B Surface Antibody, Qualitative Lab Routine Need for hepatitis B screening test Expected: 12/13/2024 (Approximate), Expires: 12/13/2025 Hepatitis C Antibody with Reflex to HCV, RNA, Quantitative, Real-Time PCR Lab Routine Routine screening for STI (sexually transmitted infection) Expected: 12/13/2024 (Approximate), Expires: 12/13/2025 HIV-1/2 Antigen and Antibodies, Fourth Generation, with Reflexes Lab Routine Routine screening for STI (sexually transmitted infection) Expected: 12/13/2024 (Approximate), Expires: 12/13/2025 Lipid Panel, Standard Lab Routine Lipid screening Expected: 12/13/2024 (Approximate), Expires: 12/13/2025 Comprehensive Metabolic Panel Lab Routine Essential hypertension Expected: 12/13/2024 (Approximate), Expires: 12/13/2025 Albumin, Random Urine W/Creatinine Lab Routine Essential hypertension Expected: 12/13/2024 (Approximate), Expires: 12/13/2025 Hemoglobin A1c Lab Routine Healthcare maintenance Expected: 12/13/2024 (Approximate), Expires: 12/13/2025 Vitamin D, 25-Hydroxy, Total, Immunoassay Lab Routine Closed fracture of head of left fibula with routine healing, subsequent encounter Vitamin D deficiency Expected: 12/13/2024 (Approximate), Expires: 12/13/2025 BD DEXA Axial Imaging Routine Closed fracture of head of left fibula with routine healing, subsequent encounter Premature menopause Expected: 12/13/2024 (Approximate), Expires: 12/13/2025 BI Mammogram Screening Bilateral Imaging Routine Screening mammogram for breast cancer Expected: 12/13/2024, Expires: 12/14/2025 documented as of this encounter Visit Diagnoses Diagnosis Closed fracture of head of left fibula with routine healing, subsequent encounter- Primary Healthcare maintenance Screening for cervical cancer Screening for malignant neoplasm of the cervix Screening mammogram for breast cancer Need for hepatitis B screening test Routine screening for STI (sexually transmitted infection) Screening examination for venereal disease Lipid screening Screening for lipoid disorders Essential hypertension Unspecified essential hypertension Vitamin D deficiency Benign essential HTN Premature menopause documented in this encounter Additional Health Concerns Assessment Noted Time PHQ-9 Depression Total Score: 1 12/14/19 25 10:47 AM EDT documented as of this encounter Care Teams Label Stitcher Relationship Specialty Start Date End Date Radha Virk ANP [address] [place] [id number] PCP - General Family Medicine 04/10/20 documented as of this encounter
--- OUTSIDE RECORDS SUMMARY | 2024-12-16 11:47 | XMS_ITS | Encounter Summary ---
Author Organization [employer] Address [address] [facility] [address] [place] [address] Care Team Providers Care Economic Historian Name Role Phone Radha Virk SAWYER Primary Care Provider [phone] Encounter Details Date Type Department Care Team (Latest Contact Info) Description 12/13/2024 Travel Social History Tobacco Use Types Packs/Day Years [...] AM EDT documented as of this encounter Functional Status * Over the [...] AM EDT Kwaku Brooks MA * Feeling bad about yourself - or that you are a failure or have let yourself or your family down Answer Date of Assessment Author Not at all 12/13/2024 10:47 AM EDT Kwaku Brooks MA * Trouble concentrating on things, such as reading the newspaper or watching television Answer Date of Assessment Author Not at all 12/13/2024 10:47 AM EDT Kwaku Brooks MA * Moving or speaking so slowly that other people could have noticed? Or the opposite - being so fidgety or restless that you have been moving around a lot more than usual. Answer Date of Assessment Author Not at all 12/13/2024 10:47 AM EDT Kwaku Brooks MA * Thoughts that you would be better off or hurting yourself in some way Answer Date of Assessment Author Not at all 12/13/2024 10:47 AM TONIOT Kwaku Brooks MA * Patient Health Questionnaire-9 Score Answer Date of Assessment Author 1 12/13/2024 10:47 AM EDT Kwaku Brooks MA * How difficult have these problems made it for you to do your work, take care of things at home, or get along with other people? Answer Date of Assessment Author Not difficult at all 12/13/2024 10:47 AM EDT Kwaku Soria MA * Over the last 2 weeks, how often have you been bothered by any of the following problems? Question Answer Date of Assessment Author Feeling nervous, anxious, or on edge 0 12/13/2024 10:47 AM EDT Kwaku Brooks MA Not being able to stop or co ntrol worrying 0 12/13/2024 10:47 AM EDT Kwaku Brooks MA Worrying too much about diff erent things 0 12/13/2024 10:47 AM TONIOT Kwaku Brooks MA Trouble relaxing 0 12/13/2024 10:47 AM TONIOT Kwaku Brooks MA Being so restless that it is hard to sit still 0 12/13/2024 10:47 AM TONIOT Kwaku Brooks MA Becoming easily annoyed or irritable 0 12/13/2024 10:47 AM EDT Kwaku Brooks MA Feeling afraid as if somethi ng awful might happen 0 12/13/2024 10:47 AM EDT Kwaku Brooks MA PAULO-7 Total Score 0 12/13/2024 10:47 AM Kwaku Bell MA documented as of this encounter Plan of Treatment Upcoming Encounters Date Type Department Care Team (Late st Contact Info) Description 12/30/2024 9:30 AM EDT Clinical Support [facility] [address] [place] [phone] 01/16/2025 9:00 AM EST Procedure Visit [facility] [address] [place] [address] [place] [address] Yisel Viera CNM [address] [place] [address] documented as of this encounter Visit Diagnoses Not on filedocumented in this encounter Additional Health Concerns Assessment Noted Time PHQ-9 Depression Total Score: 1 12/14/19 25 10:47 AM EDT documented as of this encounter Care Teams Economic Historian Relationship Specialty Start Date End Date Radha Virk ANP [address] [place] [address] PCP - General Family Medicine 04/10/20 documented as of this encounter
--- OUTSIDE RECORDS SUMMARY | 2024-12-16 11:47 | XMS_ITS | Clinical Summary ---
Author Organization [employer] Address [address] [place] [address] 7 [place] [address] Care Team Providers Care Tableau Architect Name Role Phone Nita Virk SAWYER Primary Care Provider [phone] Allergies Active Allergy Reactions Criticality Noted Date Comments Fish Protein-Containing Drug Products Hives Medications meloxicam (Mobic) 15 MG tabletIndication s:Closed fracture fibula, head, left, initial encounter TAKE 1 TABLET (15 MG) BY MOUTH ONCE PER DAY. 30 tablet 10/29/19 25 Active Blood Pressure kitIndications:B enign essential HTN 1 kit Once per day. 1 kit 12/14/19 25 Active hydroCHLOROthiaz olga (HYDRODiuril) 25 MG tabletIndication s:Essential hypertension Take 1 tablet (25 mg) by mouth Once per day. 90 tablet 1 12/14/19 25 026 Active Blood Pressure kitIndications:B enign essential HTN 1 kit in the morning. 1 kit 08/06/19 23 025 Discontinued(Re order (will not trigger notification to Pharmacy)) hydroCHLOROthiaz olga (Microzide) 12.5 MG capsule Take 12.5 mg by mouth in the morning. 07/24/19 23 025 Discontinued losartan (Cozaar) 50 MG tablet Take 1 tablet by mouth at bed time. 12/04/19 21 025 Discontinued(Th erapy completed) Active Problems Problem Noted Date Diagnosed Date Closed fracture fibula, head, left, initial enco unter 10/01/2024 Assessment & Plan (10/01/2024 9:22 AM EDT): Patient of nita Virk seen today for an ER follow up Pt seen 09/21/2024 at [facility] x-rays showed: a Displaced fibular head fracture [...] NSAID Vitamin D deficiency 01/07/2016 Morbid obesity (CMS/HCC) 09/11/2015 Encounters Date Type Department Care Team Description 12/13/2024 9:15 AM EDT Office Visit [facility] [address] [place] [address] Nita Virk ANP Closed fracture of head of left fibula with routine healing, subsequent encounter (Primary Dx); Healthcare maintenance; Screening for cervical cancer; Screening mammogram for breast cancer; Need for hepatitis B screening test; Routine screening for STI (sexually transmitted infection); Lipid screening; Essential hypertension; Vitamin D deficiency; Benign essential HTN; Premature menopause 12/13/2024 Travel 12/12/2024 Travel 12/12/2024 Telephone [facility] [address] [place] [address] Niat Virk ANP chart prep 11/06/2024 Population Health Risk Score [facility] () Department [address] [place] [address] [phone] Provider, Population Health Generic 10/28/2024 Refill [facility] [address] [place] [address] Sylvian Flores MD Closed fracture fibula, head, left, initial encounter 10/03/2024 Telephone [facility] [address] [place] [address] Nita Virk ANP Durable Medical Equipment 10/01/2024 9:00 AM EDT Office Visit [facility] [address] [place] [address] Sylvain Flores MD Closed fracture fibula, head, left, initial encounter (Primary Dx); Essential hypertension 10/01/2024 Telephone [facility] [address] [place] [address] Nita Virk ANP Referral 10/01/2024 Travel 09/30/2024 Telephone [facility] [address] [place], [place] [phone] Nita Virk ANP Chart Prep 09/30/2024 Telephone [facility] [address] [place], [place] [phone] Nita Virk ANP Nurse Triage; ER Follow-up [...] your housing situation today? I have serenity freddy 12/13/[address] you li [...] Mass Index 45.28 12/13/2024 9:42 AM EDT Plan of Treatment Upcoming Encounters Date Type Department Care Team (Late st Contact Info) Description 12/30/2024 9:30 AM EDT Clinical Support [facility] [address] [place] [phone] 01/16/2025 9:00 AM EST Procedure Visit [facility] [address] [place] [phone] Yisel Viera CNM [address] [place] [address] Health Maintenance Due Date Last Done Comments CT Colonography 1973 Colonoscopy 1973 Colorectal Cancer Screening 1973 FIT DNA/Cologuard 1973 FIT 1973 FOBT 1973 HIV Screening 1973 Lipid Panel 1973 Sigmoidoscopy 1973 Family Planning (PISQ) 01/06/1988 Hepatitis C Screening [...] Influenza Vaccine (#1) 2024 , 01/07/2016, 11/09/2012 Alcohol/Substance Use Screening 12/13/2025 12/13/2024 Depression Screening 12/13/2025 12/13/2024, 12/13/2024 Disability Screening 12/13/2025 12/13/2024 SDOH Screening 12/13/2025 12/13/2024 Tobacco Screening 12/13/2025 12/13/2024 DTaP/Tdap/Td Vaccines (3 - T d or [...] result details Legacy Procedure: Mammography Report 1 [facility] IM BI PROCEDURES Final Result * HPV mRNA E6/E7 (05/31/2016 10:15 AM EDT) HPV mRNA E6/E7 Not Detected NOT DETECTED [facility] Comment: This test was performed using the APTIMA(R) HPV Assay ([employer] This assay detects E6/E7 viral messenger RNA (mRNA) from 14 high-risk HPV types (16,18,31,33,35,39,45,51, 52,56,58,59,66,68). For additional information please refer to: http://education.[employer]/faq/HWD242f7 (This link is being provided for informational/ educational purposes only.) Test Performed by [facility], [facility], [address] [place] [address] Gerson Neal M.D., Ph.D., Director of Laboratories , [facility] [id number] Please note: Effective 11/16/2015, HPV testing will be performed using [employer]'s APTIMA test which targets mRNA. Detecting mRNA instead of DNA, as in older methods, offers significant improvements in specificity. 05/31/2016 10:1 5 AM EDT us Livia Lopez NP HISTORICAL/NON ORDERABLE LABS Fi nal Result [facility] Anywhere [address] from Last 3 Months or Most Recently Relevant to Health Maintenance Insurance [address] [place], [place] [id number] [employer] Care Teams Tableau Architect Relationship Specialty Start Date End Date Nita Virk ANP [address] [place] [phone] PCP - General Family Medicine 04/10/20
--- OUTSIDE RECORDS SUMMARY | 2024-12-16 11:47 | XMS_ITS | Encounter Summary ---
Author Organization [employer] [facility] Address [address] [place] [address] Care Team Providers Care Marketing Administrative Assistant Name Role Phone Radha Virk Primary Care Provider [phone] Encounter Details Date Type Department Care Team (Late st Contact Info) Description 02/08/[address] [address] Taty Addison, RN [address] [place] [phone] Social History Tobacco Use Types Packs/Day Years [...] Description 12/30/2024 9:30 AM EDT Clinical Support [address] [phone] 01/16/2025 9:00 AM EST Procedure Visit [address] [address] Yisel Viera CNM [address] [place] [phone] documented as of this encounter Visit Diagnoses Not on filedocumented in this encounter Care Teams Marketing Administrative Assistant Relationship Specialty Start Date End Date Radha Virk ANP [address] [place] [address] PCP - General Family Medicine 04/10/20 documented as of this encounter
--- OUTSIDE RECORDS SUMMARY | 2024-12-16 11:47 | XMS_ITS | Encounter Summary ---
Author Organization [employer] Address [address] [facility] 7 [place] [address] Care Team Providers Care Annealer Name Role Phone Radha Virk Primary Care Provider [phone] Reason for Visit * Reason Onset Date Comments chart prep 12/12/2024 Encounter Details Date Type Department Care Team ([facility] st Contact Info) Description 12/12/2024 Telephone [facility] [address] [place], [place] [phone] Radha Virk ANP [address] [place] [address] chart prep Social History Tobacco Use Types Packs/Day Years [...] AM EDT documented as of this encounter Miscellaneous Notes * Telephone Encounter - Kwaku Brooks MA - 12/12/2024 9:08 AM EDT Chart Prep Labs: not applicable Images: not applicable Referrals: complete Vaccines due: Covid, Flu, PCV20, Hep B, and Zoster Screenings: colonoscopy, mammogram, pap smear, and HIV screeening Overdue care gaps: SBIRT, SDOH, PHQ-9, PAULO-7, Oral health screening, and Disability screen documented in this encounter Plan of Treatment Upcoming Encounters Date Type Department Care Team ([facility] st Contact Info) Description 12/30/2024 9:30 AM EDT Clinical Support [facility] [address] [place] [phone] 01/16/2025 9:00 AM EST Procedure Visit [facility] [address] [place] [address] Yisel Viera CNM [address] [place] [address] documented as of this encounter Visit Diagnoses Not on filedocumented in this encounter Care Teams Annealer Relationship Specialty Start Date End Date Radha Virk ANP [address] [place] [address] PCP - General Family Medicine 04/10/20 documented as of this encounter
--- OUTSIDE RECORDS SUMMARY | 2024-12-16 11:47 | XMS_ITS | Encounter Summary ---
Author Organization [employer] Address [address] [facility] 7t [place] [address] Care Team Providers Care Packer Operator Automatic Name Role Phone Radha Virk SAWYER Primary Care Provider [phone] Encounter Details Date Type Department Care Team (Latest Contact Info) Description 12/12/2024 Travel Social History Tobacco Use Types Packs/Day [...] Upcoming Encounters Date Type Department Care Team ([facility] st Contact Info) Description 12/30/2024 9:30 AM EDT Clinical Support [address] [address] 01/16/2025 9:00 AM EST Procedure Visit [address] [address] Yisel Viera CNM [address] [place] [address] documented as of this encounter Visit Diagnoses Not on filedocumented in this encounter Care Teams Packer Operator Automatic Relationship Specialty Start Date End Date Radha Virk ANP [address] [place] [address] PCP - General Family Medicine 04/10/20 documented as of this encounter
[2024-12-16 13:53] LABS: Alanine Aminotransferase 14 U/L (0-31); Albumin Level 4.2 g/dL (3.5-5.0); Alkaline Phosphatase 92 U/L (39-117); Anion Gap 10 (12-20); Aspartate Amino Transferase 20 U/L (5-31); Blood Urea Nitrogen 12 mg/dL (9-16); Calcium 8.9 mg/dL (8.4-10.2); Carbon Dioxide 30 mmol/L (22-29); Chloride 107 mmol/L (96-108); Cholesterol 110 mg/dL (<200); Estimated Glomerular Filt Rate > 60; HDL Cholesterol 41 mg/dL (>40); Potassium 3.7 mmol/L (3.3-5.1); Sodium 143 mmol/L (135-145); Total Protein 7.5 g/dL (6.5-8.0); Triglycerides 57 mg/dL (<150)
[2024-12-16 14:01] LABS: HBS Num1 1.60 mIU/mL (0-7.99); HBc Num1 0.14 S/CO (0.00-0.79); HBsAGNum1 0.47 S/CO (0.00-0.99); HIV Num 1 0.06 S/CO (0.00-0.99); Hepatitis B Surface Antigen Negative (Negative); ~HepC Num1 0.30 S/CO (0.00-0.79); ~Hepatitis B Surface Antibody NONREACTIVE (Nonreactive); ~Hepatitis C Antibody Nonreactive (Nonreactive)
[2024-12-16 14:35] LABS: Microalbum/Creatinine Ratio Ur 14.7 ug/mg cr (<30)
== END 2024-12-16 11:44 | disposition home or self-care (01) ==
LOC: HO.HHCL 11:43
PROVIDERS: PCP Nurse Practitioner Primary Care; Visit Provider Nurse Practitioner Primary Care
DX: S82.832D Other fracture of upper and lower end of left fibula, subsequent encounter for closed fracture with routine healing (principal); Z00.00 Encounter for general adult medical examination without abnormal findings; Z11.59 Encounter for screening for other viral diseases; Z11.3 Encounter for screening for infections with a predominantly sexual mode of transmission; Z11.4 Encounter for screening for human immunodeficiency virus [HIV]; Z13.220 Encounter for screening for lipoid disorders; I10 Essential (primary) hypertension; E55.9 Vitamin D deficiency, unspecified; X58.XXXD Exposure to other specified factors, subsequent encounter
CPT/HCPCS: 36415; 80053; 80061; 82043; 82306; 82570; 83036; 86704; 86706; 86803; 87340; 87389

== ENCOUNTER → 2024-12-29 10:24 | Outpatient (BNV) | payer MEDICAID, SELFPAY | PROVIDERS: PCP Nurse Practitioner Primary Care; Visit Provider Radiology Diagnostic Ultrasound | DX: S82.832A Other fracture of upper and lower end of left fibula, initial encounter for closed fracture (principal); S83.412A Sprain of medial collateral ligament of left knee, initial encounter; S76.312A Strain of muscle, fascia and tendon of the posterior muscle group at thigh level, left thigh, initial encounter; M23.352 Other meniscus derangements, posterior horn of lateral meniscus, left knee | CPT/HCPCS: 73721 ==

== ENCOUNTER 2024-12-29 10:25 | Outpatient (REF) | payer MEDICAID, SELFPAY ==
--- OUTSIDE RECORDS SUMMARY | 2006-09-17 20:00 | XMS_ITS | Continuity of Care Document ---
Author Organization deisy [facility] Address [address] [place] [address] Phone Care Team Providers Care Net Coordinator Name Role Phone Z-Converted, Provider Unavailable Unavailabl e Medications Medication Instructions Dosage Effective Dates (start - stop) Status Comments Prilosec OTC 20 mg Tab 2 tabs for 1 wk then 1 tab daily - Active Advance Directives Directive Yes / No Effective Date File Name No Information Encounters Encounter Description Practice Location Reason(s) For Visit Diagnoses Date Provider Providers Copied on Encounter [facility], [address] [address], [place], [place], [id number], [place] tel:[phone] [facility] Abdominal pain, right upper quadrant 7 Z-Convert ed Provider. . [facility], [address] [place] [address] 2,[address], [place], [place], [id number], [place] tel:[phone] 2 Converted Locations No Information 7 Z-Convert ed Provider. . Family History Family Member Type Diagnosis Age At Onset No Information Payers Payer name Insurance type Covered alliance party ID Authoriza tion(s) No Information Social [...]
--- NOTE | ~2024-12-29 | MR_ITS ---
EXAMINATION: MR KNEE WITHOUT CONTRAST, LEFT CLINICAL INFORMATION: Question PCL tear COMPARISON: X-ray 11/22/2024 TECHNIQUE: MRI of the knee without contrast was performed using routine sequences on a high-field scanner. FINDINGS: MENISCI: Medial Meniscus: T2 signal in the peripheral meniscocapsular interface of the central posterior horn, from possible small ill-defined tear.. Lateral Meniscus: Degeneration and fraying of the posterior root. LIGAMENTS: Cruciate: Increased T2 signal in the ACL, with slight laxity, ill-definition ligament suggestive of grade 2 sprain/partial tear. T2 signal in the proximal PCL from grade 2 sprain/partial tear. Collateral: Mild T2 signal associated the MCL suggesting sprain. Redemonstration of an avulsion fracture of the proximal fibular head with approximately 11 mm of distraction. The distal biceps femoris tendon fibular collateral ligament appear to insert on this fragment. The comminuted fragments seen on the prior x-rays are not clearly evident on MRI. Mild strain of the distal biceps femoris tendon. Mild fibular collateral ligament sprain. Iliotibial band is intact. EXTENSOR MECHANISM: Intact ARTICULAR CARTILAGE/BONE: Patellofemoral Compartment: Mild arthritis Medial Compartment: Mild arthritis. Marginal osteophytes, chondromalacia, mild joint space loss, subchondral edema., Lateral Compartment: No significant chondral loss. JOINT FLUID AND BURSAE: Small effusion. Small Kwan's cyst. Subcutaneous edema. Varicose veins. MR/MR knee LT wo con IMPRESSION: * Redemonstration of an avulsion fracture of the left fibular head, with 11 mm of bone distraction. . * The biceps femoris tendon, fibular collateral ligament appear to insert on the displaced fibular fracture fragment. Biceps femoris tendon mild strain. Mild medial collateral ligament sprain. * ACL findings suspicious for grade 2 sprain/partial tear. * PCL findings suspicious for grade 2 sprain/partial tear. *Questionable subtle undisplaced peripheral meniscocapsular tear of the central posterior horn of the medial meniscus. *Lateral meniscal posterior root degeneration, mild fraying. Electronically signed by: Fer Leggett MD 12/30/2024 08:16 AM EDT
--- OUTSIDE RECORDS SUMMARY | 2024-12-29 10:32 | XMS_ITS | Encounter Summary ---
Author Organization [employer] Address [address] [facility] 7 [place] [address] Care Team Providers Care Research Biostatistician Name Role Phone Radha Virk Primary Care Provider [phone] Encounter Details Date Type Department Care Team (Latest Contact Info) Description 12/16/2024 Results Follow-Up [facility] [address] [place] [address] Radha Virk ANP [address] [place] [address] Lipid Panel, Standard, Comprehensive Metabolic Panel, Hemoglobin A1c, Additional followed-up results: 7 Social History Tobacco Use Types Packs/Day Years [...] as of this encounter Miscellaneous Notes * Result Encounter Note - SAWYER Peña - 12/16/2024 1:59 PM EDT multiple labs pending at time of review documented in this encounter Plan of Treatment Upcoming Encounters Date Type Department Care Team (Late st Contact Info) Description 12/30/2024 9:30 AM EDT Clinical Support [facility] [address] [place] [address] 01/16/2025 9:00 AM EST Procedure Visit [facility] [address] [place] [address] Yisel Viera CNM [address] [place] [address] documented as of this encounter Visit Diagnoses Not on filedocumented in this encounter Additional Health Concerns Assessment Noted Time PHQ-9 Depression Total Score: 1 12/14/19 25 10:47 AM EDT documented as of this encounter Care Teams Research Biostatistician Relationship Specialty Start Date End Date Radha Virk ANP [address] [place] [phone] PCP - General Family Medicine 04/10/20 documented as of this encounter
--- OUTSIDE RECORDS SUMMARY | 2024-12-29 10:33 | XMS_ITS | Encounter Summary ---
Author Organization [employer] [facility] Address [address] [place] [address] Care Team Providers Care Manufacturing Director Name Role Phone Radha Virk Primary Care Provider [phone] Encounter Details Date Type Department Care Team (Late st Contact Info) Description 02/08/[address] [address] Taty Addison, RN [address] [place] [address] Social History Tobacco Use Types Packs/Day Years [...] Description 12/30/2024 9:30 AM EDT Clinical Support [address] [phone] 01/16/2025 9:00 AM EST Procedure Visit [address] [address] Yisel Viera CNM [address] [place] [address] documented as of this encounter Visit Diagnoses Not on filedocumented in this encounter Care Teams Manufacturing Director Relationship Specialty Start Date End Date Radha Virk ANP [address] [place] [address] PCP - General Family Medicine 04/10/20 documented as of this encounter
--- OUTSIDE RECORDS SUMMARY | 2024-12-29 10:33 | XMS_ITS | Clinical Summary ---
Author Organization [employer] Address [address] [place] [address] 7 [place] [address] Care Team Providers Care Maintenance Fitter Name Role Phone Nita Virk SAWYER Primary Care Provider [phone] Allergies Active Allergy Reactions Criticality Noted Date [...] ER follow up Pt seen 09/21/2024 at [facility] x-rays showed: a Displaced fibular head fracture [...] NSAID Vitamin D deficiency 01/07/2016 Morbid obesity ([facility]/HCC) 09/11/2015 Encounters Date Type Department Care Team Description 12/16/2024 Results Follow-Up [facility] [address] [place] [address] Nita Vrik ANP Lipid Panel, Standard, Comprehensive Metabolic Panel, Hemoglobin A1c, Additional followed-up results: 7 12/13/2024 9:15 AM EDT Office Visit [facility] [address] [place] [address] Nita Virk ANP Closed fracture of head of left fibula with routine healing, subsequent encounter (Primary Dx); Healthcare maintenance; Screening for cervical cancer; Screening mammogram for breast cancer; Need for hepatitis B screening test; Routine screening for STI (sexually transmitted infection); Lipid screening; Essential hypertension; Vitamin D deficiency; Benign essential HTN; Premature menopause 12/13/2024 Travel 12/12/2024 Travel 12/12/2024 Telephone [facility] [address] [place] [phone] Nita Virk ANP chart prep 11/06/2024 Population Health Risk Score Community [facility] ([facility]) Department [address] [place] [address] Provider, Population Health Generic 10/28/2024 Refill [facility] [address] [place] [address] Sylvain Flores MD Closed fracture fibula, head, left, initial encounter 10/03/2024 Telephone [facility] [address] [place] [address] Nita Virk ANP Durable Medical Equipment 10/01/2024 9:00 AM EDT Office Visit [facility] [address] [place] [address] Sylvain Flores MD Closed fracture fibula, head, left, initial encounter (Primary Dx); Essential hypertension 10/01/2024 Telephone [facility] [address] [place] [address] Nita Virk ANP Referral 10/01/2024 Travel 09/30/2024 Telephone [facility] [address] [place] [address] Nita Virk ANP Chart Prep 09/30/[address] [address] Nita Virk ANP Nurse Triage; ER Follow-up [...] Description 12/30/2024 9:30 AM EDT Clinical Support [facility] [address] [place] [address] 01/16/2025 9:00 AM EST Procedure Visit [facility] [address] [place] [address] Yisel Viera, CNM [address] [place] [address] Health Maintenance Due Date Last Done Comments CT Colonography 1973 Colonoscopy 1973 Colorectal Cancer Screening 1973 FIT DNA/Cologuard 1973 FIT 1973 FOBT 1973 Sigmoidoscopy 1973 Family Planning (PISQ) 01/06/1988 Pap Smear 1994 Hepatitis B Vaccines (3 [...] Screening 12/13/2025 12/13/2024 Tobacco Screening 12/13/2025 12/13/2024 Diabetes: Hemoglobin A1C 12/16/2025 12/16/2024 Lipid Panel 12/16/2029 12/16/2024 DTaP/Tdap/Td Vaccines (3 - T d or Tdap) 12/03/2030 12/03/2020, 08/12/2010, 09/09/2008 RSV Patients and Patients Aged 60 years or older (1 - 1-dose 75+ series) 01/06/2048 HIV Screening Completed 12/16/2024 Hepatitis C Screening Completed 12/16/2024 HIB Vaccines Aged Out No longer eligi [...] Procedure Name Priority Date/Time Associated Diagnosis Comments VITAMIN D,25-OH,TOTAL,IA Routine 12/16/2024 11:51 AM EDT Closed fracture of head of left fibula with routine healing, subsequent encounter Vitamin D deficiency HEMOGLOBIN A1C Routine 12/16/2024 11:51 AM EDT Healthcare maintenance ALBUMIN, RANDOM URINE W/CREATININE Routine 12/16/2024 11:51 AM EDT Essential hypertension COMPREHENSIVE METABOLIC PANEL Routine 12/16/2024 11:51 AM EDT Essential hypertension LIPID PANEL, STANDARD Routine 12/16/2024 11:51 AM EDT Lipid screening HIV 1/2 ANTIGEN/ANTIBODY, FOURTH GENERATION W/RFL Routine 12/16/2024 11:51 AM EDT Routine screening for STI (sexually transmitted infection) HEPATITIS C AB W/REFL TO HCV RNA, QN, PCR Routine 12/16/2024 11:51 AM EDT Routine screening for STI (sexually transmitted infection) HEPATITIS B SURFACE ANTIBODY, QUALITATIVE Routine 12/16/2024 11:51 AM EDT Need for hepatitis B screening test HEPATITIS B SURFACE ANTIGEN, EIA Routine 12/16/2024 11:51 AM EDT Need for hepatitis B screening test HEPATITIS B CORE AB TOTAL Routine 12/16/2024 11:51 AM EDT Need for hepatitis B screening test MAMMOGRAM GENERIC Routine 10/12/2020 10: 00 AM EDT ZZZ HISTORICAL HPV MRNA E6/E7 Routine 05/31/2016 10:15 AM EDT from Last 3 Months or Most Recently Relevant to Health Maintenance Results * (ABNORMAL) Vitamin D, 25-Hydroxy, Total, Immunoassay (12/16/2024 11:51 AM EDT) Vitamin D 25-OH Total 17.0(L) >30 ng/mL [facility] Comment: Health Based Reference Values*< 20 ng/mL Iodvtsvje33-98 ng/mL Insufficient> 30 ng/mL Sufficient*Curt SHAFER. N Engl J Med. 2007;357:266-280There is no well-established upper level of normal vitamin Dlevels. Some laboratories use 50 ng/mL as an upper limit ofnormal. However, toxicity is patient-dependent and may occurat any level. Careful correlation with the patient'spresentation is necessary and, if there is concern forvitamin D toxicity, treatment should be consideredirrespective of the serum level.Care must be taken in interpreting Vitamin D results fromdifferent laboratories and methodologies. Published datademonstrated that results from patients undergoinghemodialysis may show a negative bias when tested withvarious automated 25-OH vitamin D assays when compared toLC-MS/MS.When testing samples from patients whose predominant form ofVitamin D is Vitamin D2, such as patients receiving VitaminD2 supplementation, results that are subtherapeutic shouldbe confirmed with another method such as LC-MS/MS. Blood Venous blood specimen / Unknown 12/16/2024 11:51 AM EDT 12/16/2024 1:04 PM EDT Nita Virk [employer] [facility] LAB BLOOD ORDERABLES Final Resul t [facility] [address] [place] [phone] * Albumin, Random Urine W/Creatinine (12/16/2024 11:51 AM EDT) Creatinine, Urine 101.97 mg/dL [facility] Microalbumin Urine 15.0 mg/L [facility] Microalbum Creatinine Ratio Ur 14.7 <30 ug/mg cr [facility] Comment:Albumin/Creatinine R atio Reference Ranges: Normal: < 30 ug/mg creatinine Microalbuminuria: 30 - 300 ug/mg creatinineClinical Albuminuria: > 300 ug/mg creatinine Urine (Urine, Random) 12/16/2024 11:51 AM EDT 12/16/2024 1:21 PM EDT us Nita Virk ANP LAB URINE ORDERABLES Final Resul t Performing Organization Address [facility] Co de Phone Number [facility] [address] [place] [phone] * Hepatitis C Antibody with Reflex to HCV, RNA, Quantitative, Real-Time PCR (12/16/2024 11:51 AM EDT) Pathologist [facility] Hepatitis C Antibody Nonreactive Nonreactive [facility] Comment:Antibodies to HCV no t detected; does not exclude early acuteHCV infection. Blood Venous blood specimen / Unknown 12/16/2024 11:51 AM EDT 12/16/2024 1:04 PM EDT us Nita Virk ANP LAB BLOOD ORDERABLES Final Resul t Performing Organization Address City/[facility]/ZIP Co de Phone Number [facility] [address] [place] [phone] * Hepatitis B surface antigen, EIA (12/16/2024 11:51 AM EDT) Hepatitis B Surface Ag Negative Negative [facility] Blood Venous blood specimen / Unknown 12/16/2024 11:51 AM EDT 12/16/2024 1:04 PM EDT Nita Virk [facility] LAB BLOOD ORDERABLES Final Resul t Performing Organization Address City/[facility]/ZIP Co de Phone Number [facility] [address] [place] [phone] * Hepatitis B Core Antibody, Total (12/16/2024 11:51 AM EDT) Hepatitis B Core Antibody Nonreactive Nonreactive [facility] Blood Venous blood specimen / Unknown 12/16/2024 11:51 AM EDT 12/16/2024 1:04 PM EDT Nita Virk [facility] LAB BLOOD ORDERABLES Final Resul t Performing Organization Address [facility] de Phone Number [facility] [address] [place] [phone] * HIV-1/2 Antigen and Antibodies, Fourth Generation, with Reflexes (12/16/2024 11:51 AM EDT) HIV AB/AG Nonreactive Nonreactive [facility] Comment:HIV-1 p24 Ag and/or HIV-1/HIV-2 Ab not detected.A test result that is nonreactive does not exclude thepossibility of exposure to or infection with HIV-1 and/orHIV-2. Nonreactive results in this assay for individualswith prior exposure to HIV-1 and/or HIV-2 may be due toantigen and antibody levels that are below the limit ofdetection of this assay.The [email or web address] HIV Ag/Ab Combo assay result andsupplemental assay results should be interpreted inconjunction with the patient's clinical presentation,history and other laboratory results. If the results areinconsistent with clinical evidence, additional testing issuggested to confirm the result. Blood Venous blood specimen / Unknown 12/16/2024 11:51 AM EDT 12/16/2024 1:04 PM EDT Nita Virk ANP LAB BLOOD ORDERABLES Final Resul t Performing Organization Address [facility]/ZIP Co de Phone Number [facility] [address] [place] [phone] * Hepatitis B Surface Antibody, Qualitative (12/16/2024 11:51 AM EDT) ~Hepatitis B Surface Antibody NONREACTIVE Nonreactive [facility] Comment:Nonreactive: < 8.00 mIU/mL Blood Venous blood specimen / Unknown 12/16/2024 11:51 AM EDT 12/16/2024 1:04 PM EDT Nita Virk ANP LAB BLOOD ORDERABLES Final Resul t Performing Organization Address [facility] Co de Phone Number [facility] [address] [place] [phone] * Hemoglobin A1c (12/16/2024 11:51 AM EDT) Hemoglobin A1c 6.0 <6.0 % [facility] Comment:Hemoglobin A1C Refer ence Range Adults: 4.8 - 6.0 % Non diabetic: < 6.0 % Goal: < 7.0 %Additional Action Suggested: > 8.0 %Note: Hemoglobin A1c results are invalid for patients with abnormal amounts of HbF. Blood transfusions may impact the HbA1c concentration in the patient sample. Estimated Average Glucose 126 mg/dL [facility] Comment:eAG = Estimated ave rage glucose which is %A1C expressed asaverage glucose, using the formula of the K2J-ImsfmlrTvibusd Glucose study (ADAG), Diabetes Care, Vol.31,#8,Oct. 2007 Blood Venous blood specimen / Unknown 12/16/2024 11:51 AM EDT 12/16/2024 1:04 PM EDT Nita Virk ANP LAB BLOOD ORDERABLES Final Resul t Performing Organization Address [facility] Co de Phone Number [facility] [address] [place] [phone] * Lipid Panel, Standard (12/16/2024 11:51 AM EDT) Triglycerides 57 <150 mg/dL [facility] Comment:Desirable Triglyceri de: less than 150 mg/dLBorderline High Triglyceride 150-199 mg/dLHigh Triglyceride: 200-499 mg/dLVery High Triglyceride: greater than or equal to 5OO mg/dL Cholesterol 110 <200 mg/dL [facility] Comment:Desirable Cholestero l: less than 200 mg/dLBorderline High Cholesterol: 200-239 mg/dLHigh Cholesterol: greater than 239 mg/dL LDL Cholesterol Calculated 58 <100 mg/dL [facility] Comment:Desirable LDL: less than 100 mg/dLNear Optimal/Above Optimal LDL: 110- 129 mg/dLBorderline High LDL: 130-159 mg/dLHigh LDL: 160-189 mg/dLVery High LDL: greater than or equal to 190 mg/dL HDL Cholesterol 41 >40 mg/dL [facility] Comment:Desirable HDL: great er than 40 mg/dL Note: This HDL assay may give artificially low results in patients with liver disease. Blood Venous blood specimen / Unknown 12/16/2024 11:51 AM EDT 12/16/2024 1:04 PM EDT Nita Virk [employer] [facility] [employer] LAB BLOOD ORDERABLES Final Resul t [facility] [address], [place] [phone] * (ABNORMAL) Comprehensive Metabolic Panel (12/16/2024 11:51 AM EDT) Sodium 143 135 - 145 mmol/L [facility] Potassium 3.7 3.3 - 5.1 mmol/L [facility] Chloride 107 96 - 108 mmol/L [facility] Carbon Dioxide 30(H) 22 - 29 mmol/L [facility] Anion Gap 10(L) 12 - 20 [facility] Urea Nitrogen (BUN) 12 9 - 16 mg/dL [facility] Creatinine, Serum 0.66 0.5 - 1.4 mg/dL [facility] Estimated Glomerular Filt Rate >60 [facility] Comment:Chronic Kidney Disea se: Estimated GFR < 60 mL/min/1.61n8Aanfro Kidney Disease: Estimated GFR < 15 mL/min/1.73m2 Glucose 83 60 - 115 mg/dL [facility] Calcium 8.9 8.4 - 10.2 mg/dL [facility] Bilirubin, Total 0.4 0.0 - 1.0 mg/dL [facility] Aspartate Amino Transferase 20 5 - 31 U/L [facility] Alanine Aminotransferase 14 0 - 31 U/L [facility] Total Protein 7.5 6.5 - 8.0 g/dL [facility] Albumin Level 4.2 3.5 - 5.0 g/dL [facility] Alkaline Phosphatase 92 39 - 117 U/L [facility] Blood Venous blood specimen / Unknown 12/16/2024 11:51 AM EDT 12/16/2024 1:04 PM EDT us Nita Virk [employer] [facility] LAB BLOOD ORDERABLES Final Resul t [facility] [address] [place], [place] [phone] * Mammography Report 1 (10/12/2020 10:00 AM EDT) Anatomical Region Laterality Modality Breast Bilateral Mammography 10/12/2020 10:0 0 AM EDT Narrative 10/13/2020 9:02 AM EDT Refer to the Notes tab for result details [facility] Procedure: Mammography Report 1 Procedure Note Provider, MD Guevara - 05/29/2022 Refer to the Notes tab for result details [facility] Procedure: Mammography Report 1 us Nita Virk ANP IMG BI PROCEDURES Final Result * HPV mRNA E6/E7 (05/31/2016 10:15 AM EDT) HPV mRNA E6/E7 Not Detected NOT DETECTED [facility] Comment: This test was performed using the APTIMA(R) HPV Assay ([employer] This assay detects E6/E7 viral messenger RNA (mRNA) from 14 high-risk HPV types (16,18,31,33,35,39,45,51, 52,56,58,59,66,68). For additional information please refer to: http://Bivarus.OurShelf/faq/ILV317g8 (This link is being provided for informational/ educational purposes only.) Test Performed by [employer] [facility], [address] [place] [phone] Gerson Neal M.D., Ph.D., Director of Laboratories , [facility] [id number] Please note: Effective 11/16/2015, HPV testing will be performed using [employer]'s APTIMA test which targets mRNA. Detecting mRNA instead of DNA, as in older methods, offers significant improvements in specificity. 05/31/2016 10:1 5 AM EDT us Livia Lopez NP HISTORICAL/NON ORDERABLE LABS Fi nal Result [facility] Anywhere [address] from Last 3 Months or Most Recently Relevant to Health Maintenance Insurance C3 Care Teams Maintenance Fitter Relationship Specialty Start Date End Date Nita Virk ANP [address] [place] [phone] PCP - General Family Medicine 04/10/20
== END 2024-12-29 10:26 | disposition home or self-care (01) ==
LOC: HO.MRI 10:25
PROVIDERS: PCP Nurse Practitioner Primary Care; Visit Provider Physician Assistant
DX: S82.832A Other fracture of upper and lower end of left fibula, initial encounter for closed fracture (principal)
CPT/HCPCS: 73721

== ENCOUNTER 2025-01-03 09:10 | Outpatient (AMB) | payer MEDICAID, SELFPAY ==
--- OUTSIDE RECORDS SUMMARY | 2006-09-17 20:00 | XMS_ITS | Continuity of Care Document ---
Author Organization deisy [facility] Address [address] [place] [address] Phone Care Team Providers Care Director Of Audiology Name Role Phone Z-Converted, Provider Unavailable Unavailabl e Medications Medication Instructions Dosage Effective Dates (start - stop) Status Comments Prilosec OTC 20 mg Tab 2 tabs for 1 wk then 1 tab daily - Active Advance Directives Directive Yes / No Effective Date File Name No Information Encounters Encounter Description Practice Location Reason(s) For Visit Diagnoses Date Provider Providers Copied on Encounter [facility], [address], [place], [place], [id number], [place] tel:[phone] [facility] Abdominal pain, right upper quadrant 7 Z-Convert ed Provider. . [facility], [address] [place] [address] 2,[address], [place], [place], [id number], [place] tel:[phone] Converted Locations No Information 7 Z-Convert ed Provider. . Family History Family Member Type Diagnosis Age At Onset No Information Payers Payer name Insurance type Covered green party ID Authoriza tion(s) No Information Social History Type Description Quantity Date Captured Comments Sex Female Smoking Status No Information Chief Complaint And Reason For Visit No Information Reason For Referral Reason For Referral No Information History Of Present Illness Encounter Date Complaint History Of Prese nt Illness No Information Functional Status Date Functional Assessmen t No Information Instructions Date Instruction Additional Infor mation No Information Assessments Type Assessment Date No Information Patient Care Teams Name Effective Dates (start - stop) Status Members No Information
--- OUTSIDE RECORDS SUMMARY | 2024-12-30 09:30 | XMS_ITS | Encounter Summary ---
Author Organization [employer] Address [address] [facility] 7 [place] [address] Care Team Providers Care Email Campaign Specialist Name Role Phone Corona Jeffery SAWYER Primary Care Provider [phone] Reason for Visit * Reason Comments Blood Pressure Check Encounter Details Date Type Department Care Team (Latest Contact Info) Description 12/30/2024 9:30 AM EDT Clinical Support [facility] [address] [place] [address] Maricel Ledesma RN Vitamin D deficiency (Primary Dx); Essential hypertension Social History Tobacco Use Types Packs/Day Years [...] Sign Reading Time Taken Comments Blood Pressure 148/108 12/30/2024 9:48 AM EDT Pulse 80 12/30/2024 9:48 AM EDT Temperature - - Respiratory Rate 16 12/30/2024 9:48 AM EDT Oxygen Saturation 98% 12/30/2024 9:48 AM EDT Inhaled Oxygen Concentration - - Weight - - Height - - Body Mass Index - - documented in this encounter Progress Notes * Maricel Ledesma RN - 12/30/2024 9:30 AM EDT SUBJECTIVE: Kate Solano is a 49 y.o. year old female who presents for Blood Pressure Check Preferred language for medical information: [place] Field Care Advocate needed: No Recommendations at last visit with PCP on 12/13/2024 was to remain compliant with currently prescribed hydrochlorothiazide and keep a log of home BP readings to bring into RN BP check in two weeks time. Today, Kate Solano does not complain of any blurred vision, shortness of breath, chest pain, dizziness, or headaches. Current Medications[1] Patient Active Problem List Diagnosis Date Noted Closed fracture fibula, head, left, initial encounter 10/01/2024 Essential hypertension 08/31/2017 Vitamin D deficiency 01/07/2016 Morbid obesity (CMS/HCC) (HCC) 09/11/2015 Fish protein-containing drug products Kate Solano does confirm adherence to medications for hypertension listed above. Confirmed medications taken today [x] Recent emergency room or hospitalizations: No Notes scanned into chart: No Tobacco Use History[2] Social History Substance and Sexual Activity Alcohol Use Never Social History Substance and Sexual Activity Drug Use Never BP Readings from Last 4 Encounters: 12/30/24 (!) 148/108 12/13/24 (!) 150/90 10/01/24 (!) 148/86 08/05/22 143/90 Pulse Readings from Last 4 Encounters: 12/30/24 80 12/13/24 75 10/01/24 83 08/05/22 89 OBJECTIVE: Vitals: 12/30/24 0948 BP: (!) 148/108 BP Location: Left arm Patient Position: Sitting BP Cuff Size: Large adult Pulse: 80 Resp: 16 SpO2: 98% ASSESSMENT: Pt did not achieve goal blood pressure of <140/90. The pt stated that she has remained compliantwith once daily hydrochlorothiazide and denies any adverse side effects. The pt did confirm historyof elevated blood pressures and although not having any readings from home the pt stated that they typically ranged in the 140s and 150s. Pt states she has been having a lot of life stressors that could be contributing to elevated BP. PLAN: Pt advised that today's BP check will be sent to PCP for review and advisement. If any medication changes are made or a follow up is needed the pt will be contacted. Kate Solano advised to continue taking medications as directed and reinforcement of lifestyle modifications including low sodium diet and exercise were reviewed. Kate Solano agreeable to plan discussed at today's visit. Future Appointments Date Time Provider Department Center 01/16/2025 9:00 AM Yisel Viera CNM [facility]IC[facility] Maricel Ledesma RN [1] Current Outpatient Medications Medication Sig Dispense Refill Blood Pressure kit 1 kit Once per day. 1 kit 0 hydroCHLOROthiazide (HYDRODiuril) 25 MG tablet Take 1 tablet (25 mg) by mouth Once per day. 90 tablet 1 meloxicam (Mobic) 15 MG tablet TAKE 1 TABLET (15 MG) BY MOUTH ONCE PER DAY. 30 tablet 0 No current facility-administered medications for this visit. [2] Social History Tobacco Use Smoking Status Never Smokeless Tobacco Never * SAWYER Peña - 12/30/2024 9:30 AM EDT Hi - called pt, no answer, LVM to call clinic. Please outreach and recommend pt re-start losartan and continue hydrochlorothiazide at current dose. Will send losartan 25mg to take once daily. Please schedule repeat BP check in 1 month. Please also let pt know that labs were ok, showed non-immune to Hep B (recommend IZ) and low vitamin D for which I will send a supplement to take once daily. thanks documented in this encounter Miscellaneous Notes * Addendum Note - SAWYER Peña - 12/30/2024 9:30 AM EDTAddended by: CORONA JEFFERY on: 01/01/2025 05:01 PM Modules accepted: Orders documented in this encounter Plan of Treatment Upcoming Encounters Date Type Department Care Team (Late st Contact Info) Description 01/16/2025 9:00 AM EST Procedure Visit [address] [address] Yisel Viera CNM [address] [place] [address] 01/24/2025 9:30 AM EST Clinical Support [address] [address] 03/21/2025 9:00 AM EST Office Visit [address] [address] Corona Jeffery ANP [address] [place] [phone] documented as of this encounter Visit Diagnoses Diagnosis Vitamin D deficiency- Primary Essential hypertension Unspecified essential hypertension documented in this encounter Additional Health Concerns Assessment Noted Time PHQ-9 Depression Total Score: 1 12/14/19 25 10:47 AM EDT documented as of this encounter Care Teams Email Campaign Specialist Relationship Specialty Start Date End Date Corona Jeffery ANP [address] [place] [phone] PCP - General Family Medicine 04/10/20 documented as of this encounter
--- NOTE | 2025-01-03 09:15 | A.OFFVIS_ITS ---
Intake Visit Reasons: OV-left displaced fibular head fracture, DOI 09/21 Intake Note: Kate is a 49 year old female who presents today with a knee brace and a crutch for a follow up of her left displaced fibular head fracture, DOI 09/21/24. At her last visit she is having mild pain. Patient notices that she is very stiff. She is unable to fully extend her knee without having pain. Allergies Seafood Allergy (Mild, Uncoded 11/21/19 17:37) RASH/SWELLING shellfish Allergy (Mild, Uncoded 10/15/24 09:51) Unknown HPI HPI OV-left displaced fibular head fracture, DOI 09/21: Details: Ms. Solano this is a 49-year-old female who presents to the office today for MRI review of the left knee status post left displaced fibular head fracture that she sustained on 09/21/2024. Patient presents to the office today using 1 crutch and the wrap pop knee brace that was provided to her last appointment. She reports that the knee pain has been subsiding some but still has difficulty pain and weakness with ambulation. 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 Full range of motion. Unable to attempt posterior drawer due to patient pain and guarding. Unable to asses for varus or valgus laxity due to pain and guarding. NVI. Psych Appearance: grossly normal Mental Status: mental status grossly normal Attitude: cooperative Assessment & Plan Assessment & Plan (1) Closed fracture of head of left fibula: Code(s): S82.832A - Other fracture of upper and lower end of left fibula, initial encounter for closed fracture Category: Medical Plan Ms. Russ mclaughlin is a 49-year-old female who presents to the office today for MRI review of the left knee status post left displaced fibular head fracture that she sustained on 09/21/2024. Patient presents to the office today using 1 crutch and the wrap pop knee brace that was provided to her last appointment. She reports that the knee pain has been subsiding some but still has difficulty pain and weakness with ambulation. While in the office today, I reviewed the MRI with the patient which is significant for a left knee proximal fibular head fracture with displacement. I reviewed the case with Dr. Aguilar in a collaborative treatment plan was created. The patient will attend physical therapy beginning next week. The focus will be on obtaining full range of motion and strengthening of the left lower extremity. She will remain out of work until her follow up appointment in 6-8 weeks, sooner if needed. Left knee MRI obtained on 12/29/2024: IMPRESSION: * Redemonstration of an avulsion fracture of the left fibular head, with 11 mm of bone distraction. . * The biceps femoris tendon, fibular collateral ligament appear to insert on the displaced fibular fracture fragment. Biceps femoris tendon mild strain. Mild medial collateral ligament sprain. * ACL findings suspicious for grade 2 sprain/partial tear. * PCL findings suspicious for grade 2 sprain/partial tear. *Questionable subtle undisplaced peripheral meniscocapsular tear of the central posterior horn of the medial meniscus. *Lateral meniscal posterior root degeneration, mild fraying. Coding Level of Care Code Est Pt Level 3 (05304) Diagnoses Closed fracture of head of left fibula S82.832A
--- OUTSIDE RECORDS SUMMARY | 2025-01-03 10:04 | XMS_ITS | Encounter Summary ---
Author Organization [employer] Address [address] [facility] [address]t [place] [address] Care Team Providers Care Staff Writer Name Role Phone Radha Virk SAWYER Primary Care Provider [phone] Encounter Details Date Type Department Care Team (Latest Contact Info) Description 12/30/2024 Travel Social History Tobacco Use Types Packs/Day [...] Description 01/16/2025 9:00 AM EST Procedure Visit [address] [address] Yisel Viera CNM [address] [place] [phone] 01/24/2025 9:30 AM EST Clinical Support [address] [address] 03/21/2025 9:00 AM EST Office Visit [address] [address] Radha Virk ANP [address] [place] [address] documented as of this encounter Visit Diagnoses Not on filedocumented in this encounter Additional Health Concerns Assessment Noted Time PHQ-9 Depression Total Score: 1 12/14/19 25 10:47 AM EDT documented as of this encounter Care Teams Staff Writer Relationship Specialty Start Date End Date Radha Virk ANP [address] [place] [address] PCP - General Family Medicine 04/10/20 documented as of this encounter
--- OUTSIDE RECORDS SUMMARY | 2025-01-03 10:04 | XMS_ITS | Encounter Summary ---
Author Organization [employer] Address [address] [facility] 7t [place] [address] Care Team Providers Care Motor Grader Operator Name Role Phone Radha Virk SAWYER Primary Care Provider [phone] Encounter Details Date Type Department Care Team (Latest Contact Info) Description 12/29/2024 Travel Social History Tobacco Use Types Packs/Day [...] Description 01/16/2025 9:00 AM EST Procedure Visit [address] [address] Yisel Viera CNM [address] [place] [address] 01/24/2025 9:30 AM EST Clinical Support [address] [address] 03/21/2025 9:00 AM EST Office Visit [address] [address] Radha Virk ANP [address] [place] [address] documented as of this encounter Visit Diagnoses Not on filedocumented in this encounter Additional Health Concerns Assessment Noted Time PHQ-9 Depression Total Score: 1 12/14/19 25 10:47 AM EDT documented as of this encounter Care Teams Motor Grader Operator Relationship Specialty Start Date End Date Radha Virk ANP [address] [place] [address] PCP - General Family Medicine 04/10/20 documented as of this encounter
--- OUTSIDE RECORDS SUMMARY | 2025-01-03 10:04 | XMS_ITS | Encounter Summary ---
Author Organization [employer] Address [address] [place] [address] Care Team Providers Care Marketing Traffic Manager Name Role Phone Radha Virk Primary Care Provider Encounter Details Date Type Department Care Team (Late st Contact Info) Description 02/08/[address] [address] Taty Addison, RN [address] [place] [address] Social History Tobacco Use Types Packs/Day Years [...] Description 01/16/2025 9:00 AM EST Procedure Visit [address] [address] Yisel Viera CNM [address] [place], [place] [phone] 01/24/2025 9:30 AM EST Clinical Support [address] [phone] 03/21/2025 9:00 AM EST Office Visit [address] [address] Radha Virk ANP [address] [place] [address] documented as of this encounter Visit Diagnoses Not on filedocumented in this encounter Care Teams Marketing Traffic Manager Relationship Specialty Start Date End Date Radha Virk ANP [address] [place] [address] PCP - General Family Medicine 04/10/20 documented as of this encounter
--- OUTSIDE RECORDS SUMMARY | 2025-01-03 10:04 | XMS_ITS | Encounter Summary ---
Author Organization [employer] Address [address] [facility] 7 [place] [address] Care Team Providers Care Powerhouse Mechanic Helper Name Role Phone Radha Virk Primary Care Provider [phone] Reason for Visit * Reason Onset Date Comments Medication Question 01/02/2025 Encounter Details Date Type Department Care Team ([facility] st Contact Info) Description 01/02/2025 Telephone [facility] [address] [place], [place] [phone] Radha Virk ANP [address] [place] [address] Medication Question Social History Tobacco Use Types Packs/Day Years [...] encounter Miscellaneous Notes * Telephone Encounter - Slime Sauer RN - 01/02/2025 10:32 AM EDT Images from the original note were not included. 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 Scheduled for BP check 01/24/25 per pt schedule. Advised that labs were okay, low vitamin D for which daily supplement was sent, and non-immune to Hepatitis B. Advised pt to notify nurse at next appointment if would like vaccine, pt verbalized understanding. -- Radha Virk NP Hi - called pt, no answer, LVM [...] once daily. thanks documented in this encounter Plan of Treatment Upcoming Encounters Date Type Department Care Team (Late st Contact Info) Description 01/16/2025 9:00 AM EST Procedure Visit [facility] [address] [place] [address] Yisel Viera CNM [address] [place] [address] 01/24/2025 9:30 AM EST Clinical Support [address] [address] 03/21/2025 9:00 AM EST Office Visit [address] [address] Radha Virk ANP [address] [place] [address] documented as of this encounter Visit Diagnoses Not on filedocumented in this encounter Additional Health Concerns Assessment Noted Time PHQ-9 Depression Total Score: 1 12/14/19 25 10:47 AM EDT documented as of this encounter Care Teams Powerhouse Mechanic Helper Relationship Specialty Start Date End Date Radha Virk ANP [address] [place] [address] PCP - General Family Medicine 04/10/20 documented as of this encounter
--- OUTSIDE RECORDS SUMMARY | 2025-01-03 10:04 | XMS_ITS | Encounter Summary ---
Author Organization [employer] Address [address] [facility] 7 [place] [address] Care Team Providers Care Pin Machine Tender Name Role Phone Radha Virk Primary Care Provider [phone] Reason for Visit * Reason Onset Date Comments March Recall 01/01/2025 Encounter Details Date Type Department Care Team ([facility] st Contact Info) Description 01/01/2025 Telephone [facility] [address] [place], [place] [phone] Radha Virk ANP [address] [place] [address] March Recall Social History Tobacco Use Types Packs/Day Years [...] Telephone Encounter - Kwaku Brooks MA - 01/01/2025 3:30 PM EDT Telephone call to patient to schedule the following recall: Visit type: Follow up Appointment notes: RV hypertension 3 mo Patient agree to appointment on 03/21/2025 at 9:00 AM with [facility]. documented in this encounter Plan of Treatment Upcoming Encounters Date Type Department Care Team (Late st Contact Info) Description 01/16/2025 9:00 AM EST Procedure Visit [address] [address] Yisel Viera CNM [address] [place] [address] 01/24/2025 9:30 AM EST Clinical Support [address] [address] 03/21/2025 9:00 AM EST Office Visit [address] [address] Radha Virk ANP [address] [place] [address] documented as of this encounter Visit Diagnoses Not on filedocumented in this encounter Additional Health Concerns Assessment Noted Time PHQ-9 Depression Total Score: 1 12/14/19 25 10:47 AM EDT documented as of this encounter Care Teams Pin Machine Tender Relationship Specialty Start Date End Date Radha Virk ANP [address] [place] [address] PCP - General Family Medicine 04/10/20 documented as of this encounter
--- OUTSIDE RECORDS SUMMARY | 2025-01-03 10:04 | XMS_ITS | Encounter Summary ---
Author Organization [employer] Address [address] [facility] 7 [place] [address] Care Team Providers Care Storage Worker Name Role Phone Radha Virk Primary Care Provider [phone] Encounter Details Date Type Department Care Team (Latest Contact Info) Description 12/16/2024 Results Follow-Up [facility] [address] [place] [address] Radha Virk ANP [address] [place] [address] Lipid Panel, Standard, Comprehensive Metabolic Panel, Hemoglobin [...] Result Encounter Note - SAWYER Peña - 01/01/2025 4:57 PM EDT Called pt to review and discuss BP - no answer, LVM to call clinic. Will indicate plan in RN note. * Result Encounter Note - SAWYER Peña - 12/16/2024 1:59 PM EDT multiple labs pending at time of review documented in this encounter Plan of Treatment Upcoming Encounters Date Type Department Care Team (Late st Contact Info) Description 01/16/2025 9:00 AM EST Procedure Visit [address] [address] Yisel Viera CNM [address] [place] [address] 01/24/2025 9:30 AM EST Clinical Support [address] [address] 03/21/2025 9:00 AM EST Office Visit [address] [address] Radha Virk ANP [address] [place] [address] documented as of this encounter Visit Diagnoses Not on filedocumented in this encounter Additional Health Concerns Assessment Noted Time PHQ-9 Depression Total Score: 1 12/14/19 25 10:47 AM EDT documented as of this encounter Care Teams Storage Worker Relationship Specialty Start Date End Date Radha Virk ANP [address] [place] [address] PCP - General Family Medicine 04/10/20 documented as of this encounter
--- OUTSIDE RECORDS SUMMARY | 2025-01-03 10:04 | XMS_ITS | Clinical Summary ---
Author Organization [employer] Address [address] [place] [address] 7 [place] [address] Care Team Providers Care Singer And Unloader Name Role Phone Corona Jeffery SAWYER Primary Care Provider [phone] Allergies Active Allergy Reactions Criticality Noted Date [...] 90 tablet 1 12/14/19 25 026 Active losartan (Cozaar) 25 MG tabletIndication s:Essential hypertension Take 1 tablet (25 mg) by mouth Once per day. 90 tablet 1 01/02/20 25 Active cholecalciferol (Vitamin D-3) 25 MCG (1000 UT) capsuleIndicatio ns:Vitamin D deficiency Take 1 capsule (25 mcg) by mouth Once per day. 90 capsule 01/02/20 25 026 Active Blood Pressure kitIndications:B enign [...] Plan (10/01/2024 9:22 AM EDT): Patient of corona Jeffery seen today for an ER follow up [...] Encounters Date Type Department Care Team Description 01/02/2025 Telephone [facility] [address] [place] [address] Corona Jeffery ANP Medication Question 01/01/[address] [address] Corona Jeffery ANP March Recall 12/30/2024 9:30 AM EDT Clinical Support [address] [address] Maricel Ledesma RN Vitamin D deficiency (Primary Dx); Essential hypertension 12/30/2024 Travel 12/29/2024 Orders Only [facility] External Provider, [facility] 12/29/2024 Travel 12/16/2024 Results Follow-Up [address] [address] Corona Jeffery ANP Lipid Panel, Standard, Comprehensive Metabolic Panel, Hemoglobin A1c, Additional followed-up results: 7 12/13/2024 9:15 AM EDT Office Visit [facility] [address] [place] [address] Corona Jeffery ANP Closed fracture of head of left fibula with routine healing, subsequent encounter (Primary Dx); Healthcare maintenance; Screening for cervical cancer; Screening mammogram for breast cancer; Need for hepatitis B screening test; Routine screening for STI (sexually transmitted infection); Lipid screening; Essential hypertension; Vitamin D deficiency; Benign essential HTN; Premature menopause 12/13/2024 Travel 12/12/2024 Travel 12/12/2024 Telephone [facility] [address] [place] [address] Corona Jeffery ANP chart prep 11/06/2024 Population Health Risk Score [facility] () Department [address] [place] [phone] Provider, Population Health Generic 10/28/2024 Refill [facility] [address] [place] [address] Sylvain Flores MD Closed fracture fibula, head, left, initial encounter 10/03/2024 Telephone [facility] [address] [place] [address] Corona Jeffery ANP Durable Medical Equipment from Last 3 Months Immunizations Immunization Administration [...] Pulse 80 12/30/2024 9:48 AM EDT Temperature 36.7 C (98.1 F) 12/13/2024 9:42 AM EDT Respiratory Rate 16 12/30/2024 9:48 AM EDT [...] Description 01/16/2025 9:00 AM EST Procedure Visit [facility] [address] [place], [place] [phone] Yisel Viera CNM [address] [place] [address] 01/24/2025 9:30 AM EST Clinical Support [address] [phone] 03/21/2025 9:00 AM EST Office Visit [facility] [address] [place], [place] [phone] Corona Jeffery ANP [address] [place], [place] [phone] Health Maintenance Due Date Last Done Comments [...] Procedure Name Priority Date/Time Associated Diagnosis Comments MR KNEE WO CONTRAST LEFT Routine 12/29/2024 10:28 AM EDT VITAMIN D,25-OH,TOTAL,IA Routine 12/16/2024 11:51 AM EDT [...] Recently Relevant to Health Maintenance Results * Knee w/o Contrast Left (12/29/2024 10:28 AM EDT) Anatomical Region Laterality Modality Magnetic Resonan ce 12/29/2024 10:2 8 AM EDT Narrative 12/30/2024 8:19 AM EDT [place] [address] Magnetic Resonance Report Signed Patient: Kate Solano MR#: [id number] 8 : 1975 Acct:[id number] Age/Sex: 49 / F ADM Date: 12/29/24 Loc: HO.MRI Attending Dr: Dinah Peterson PA-C Ordering Physician: Dinah Peterson PA-C Date of Service: 12/29/24 Procedure(s): MR knee LT wo con Accession Number(s): [id number] cc: Dinah Peterson PA-C; CORONA JEFFERY NP Reason for Exam: [id number] - Other fracture of upper and lower end of left fibula, initial... EXAMINATION: MR KNEE WITHOUT CONTRAST, LEFT CLINICAL INFORMATION: Question PCL tear COMPARISON: X-ray 11/22/2024 TECHNIQUE: MRI of the knee without contrast was performed using routine sequences on a high-field scanner. FINDINGS: MENISCI: Medial Meniscus: T2 signal in the peripheral meniscocapsular interface of the central posterior horn, from possible small ill-defined tear.. Lateral Meniscus: Degeneration and fraying of the posterior root. LIGAMENTS: Cruciate: Increased T2 signal in the ACL, with slight laxity, ill-definition ligament suggestive of grade 2 sprain/partial tear. T2 signal in the proximal PCL from grade 2 sprain/partial tear. Collateral: Mild T2 signal associated the MCL suggesting sprain. Redemonstration of an avulsion fracture of the proximal fibular head with approximately 11 mm of distraction. The distal biceps femoris tendon fibular collateral ligament appear to insert on this fragment. The comminuted fragments seen on the prior x-rays are not clearly evident on MRI. Mild strain of the distal biceps femoris tendon. Mild fibular collateral ligament sprain. Iliotibial band is intact. EXTENSOR MECHANISM: Intact ARTICULAR CARTILAGE/BONE: Patellofemoral Compartment: Mild arthritis Medial Compartment: Mild arthritis. Marginal osteophytes, chondromalacia, mild joint space loss, subchondral edema., Lateral Compartment: No significant chondral loss. JOINT FLUID AND BURSAE: Small effusion. Small Kwan's cyst. Subcutaneous edema. Varicose veins. MR/MR knee LT wo con IMPRESSION: * Redemonstration of an avulsion fracture of the left fibular head, with 11 mm of bone distraction. . * The biceps femoris tendon, fibular collateral ligament appear to insert on the displaced fibular fracture fragment. Biceps femoris tendon mild strain. Mild medial collateral ligament sprain. * ACL findings suspicious for grade 2 sprain/partial tear. * PCL findings suspicious for grade 2 sprain/partial tear. *Questionable subtle undisplaced peripheral meniscocapsular tear of the central posterior horn of the medial meniscus. *Lateral meniscal posterior root degeneration, mild fraying. Electronically signed by: Fer Leggett MD 12/30/2024 08:16 AM EDT RP Dictated By: Fer Leggett MD Signed By: <Electronically signed by Fer Leggett MD in OV> 12/30/24 0816 DD/ 1028 TD/TT: 12/29/24 1045 Patent Examiner: MABLE Procedure Note Donotuseinterpreter, Image - 12/30/[address] [address] Magnetic Resonance Report Signed Patient: Norma Solano#: [id number] 8 : 1975Acct:[id number] Age/Sex: 49 / FADM Date: 12/29/24 Loc: HO.MRI Attending Dr: Dinah Peterson PA-C Ordering Physician: Dinah Peterson PA-C Date of Service: 12/29/24 Procedure(s): MR knee LT wo con Accession Number(s): [id number] cc: Dinah Peterson PA-C; CORONA JEFFERY NP Reason for Exam: [id number] - Other fracture of upper and lower end of leftfibula, initial... EXAMINATION: MR KNEE WITHOUT CONTRAST, LEFT CLINICAL INFORMATION: Question PCL tear COMPARISON: X-ray 11/22/2024 TECHNIQUE: MRI of the knee without contrast was performed using routine sequences on a high-field scanner. FINDINGS: MENISCI: Medial Meniscus: T2 signal in the peripheral meniscocapsular interface of the central posterior horn, from possible small ill-defined tear.. Lateral Meniscus: Degeneration and fraying of the posterior root. LIGAMENTS: Cruciate: Increased T2 signal in the ACL, with slight laxity, ill-definition ligament suggestive of grade 2 sprain/partial tear. T2 signal in the proximal PCL from grade 2 sprain/partial tear. Collateral: Mild T2 signal associated the MCL suggesting sprain. Redemonstration of an avulsion fracture of the proximal fibular head with approximately 11 mm of distraction. The distal biceps femoris tendon fibular collateral ligament appear to insert on this fragment. The comminuted fragments seen on the prior x-rays are not clearly evident on MRI. Mild strain of the distal biceps femoris tendon. Mild fibular collateral ligament sprain. Iliotibial band is intact. EXTENSOR MECHANISM: Intact ARTICULAR CARTILAGE/BONE: Patellofemoral Compartment: Mild arthritis Medial Compartment: Mild arthritis. Marginal osteophytes, chondromalacia, mild joint space loss, subchondral edema., Lateral Compartment: No significant chondral loss. JOINT FLUID AND BURSAE: Small effusion. Small Kwan's cyst. Subcutaneous edema. Varicose veins. MR/MR knee LT wo con IMPRESSION: * Redemonstration of an avulsion fracture of the left fibular head, with 11 mm of bone distraction. . * The biceps femoris tendon, fibular collateral ligament appear to insert on the displaced fibular fracture fragment. Biceps femoris tendon mild strain. Mild medial collateral ligament sprain. * ACL findings suspicious for grade 2 sprain/partial tear. * PCL findings suspicious for grade 2 sprain/partial tear. *Questionable subtle undisplaced peripheral meniscocapsular tear of the central posterior horn of the medial meniscus. *Lateral meniscal posterior root degeneration, mild fraying. Electronically signed by: Fer Leggett MD 12/30/2024 08:16 AM EDT Dictated By: Fer Leggett MD Signed By: <Electronically signed by Fer Leggett MD in OV> 12/30/24 0816 DD/ 1028 TD/TT: 12/29/24 1045 Patent Examiner: MABLE [facility] External Provider IMG MRI PROCEDURES Edited Result - Final * (ABNORMAL) Vitamin D, 25-Hydroxy, Total, Immunoassay (12/16/2024 11:51 AM EDT) Vitamin D 25-OH Total 17.0(L) >30 ng/mL [facility] Comment: Health Based Reference Values*< 20 ng/mL Lflkwnnoz13-20 ng/mL Insufficient> 30 ng/mL Sufficient*Curt SHAFER. N [...] AM EDT 12/16/2024 1:04 PM EDT us Corona Jeffery ANP LAB BLOOD ORDERABLES Final Resul t Performing Organization Address [facility] Co de Phone Number [facility] [address] [place] [phone] * Albumin, Random Urine W/Creatinine (12/16/2024 11:51 AM EDT) Creatinine, Urine 101.97 mg/dL [facility] Microalbumin Urine 15.0 mg/L [facility] Microalbum Creatinine Ratio Ur 14.7 <30 ug/mg cr [facility] Comment:Albumin/Creatinine R atio Reference Ranges: Normal: < 30 ug/mg creatinine Microalbuminuria: 30 - 300 ug/mg creatinineClinical Albuminuria: > 300 ug/mg creatinine Urine (Urine, Random) 12/16/2024 11:51 AM EDT 12/16/2024 1:21 PM EDT us Corona Jeffery ANP LAB URINE ORDERABLES Final Resul t Performing Organization Address [facility] Co de Phone Number [facility] [address] [place] [phone] * Hepatitis C Antibody with Reflex to HCV, RNA, Quantitative, Real-Time PCR (12/16/2024 11:51 AM EDT) Hepatitis C Antibody Nonreactive Nonreactive [facility] Comment:Antibodies to HCV no t detected; does not exclude early acuteHCV infection. Blood Venous blood specimen / Unknown 12/16/2024 11:51 AM EDT 12/16/2024 1:04 PM EDT Corona Jeffery [facility] LAB BLOOD ORDERABLES Final Resul t Performing Organization Address [facility] Co de Phone Number [facility] [address] [place] [phone] * Hepatitis B surface antigen, EIA (12/16/2024 11:51 AM EDT) Hepatitis B Surface Ag Negative Negative [facility] Blood Venous blood specimen / Unknown 12/16/2024 11:51 AM EDT 12/16/2024 1:04 PM EDT Corona Jeffery [facility] LAB BLOOD ORDERABLES Final Resul t Performing Organization Address [facility] de Phone Number [facility] [address] [place] [phone] * Hepatitis B Core Antibody, Total (12/16/2024 11:51 AM EDT) Hepatitis B Core Antibody Nonreactive Nonreactive [facility] Blood Venous blood specimen / Unknown 12/16/2024 11:51 AM EDT 12/16/2024 1:04 PM EDT Corona Jeffery [facility] LAB BLOOD ORDERABLES Final Resul t Performing Organization Address [facility] Phone Number [facility] [address] [place] [phone] * HIV-1/2 Antigen and Antibodies, Fourth Generation, with Reflexes (12/16/2024 11:51 AM EDT) HIV AB/AG Nonreactive Nonreactive [facility] Comment:HIV-1 p24 Ag and/or HIV-1/HIV-2 Ab not detected.A test result that is nonreactive does not exclude thepossibility of exposure to or infection with HIV-1 and/orHIV-2. Nonreactive results in this assay for individualswith prior exposure to HIV-1 and/or HIV-2 may be due toantigen and antibody levels that are below the limit ofdetection of this assay.The ubigrateniOBOOK HIV Ag/Ab Combo assay result andsupplemental assay results should be interpreted inconjunction with the patient's clinical presentation,history and other laboratory results. If the results areinconsistent with clinical evidence, additional testing issuggested to confirm the result. Blood Venous blood specimen / Unknown 12/16/2024 11:51 AM EDT 12/16/2024 1:04 PM EDT Corona Jeffery [facility] LAB BLOOD ORDERABLES Final Resul t Performing Organization Address [facility] Co de Phone Number [facility] [address] [place] [phone] * Hepatitis B Surface Antibody, Qualitative (12/16/2024 11:51 AM EDT) Pathologist [facility] ~Hepatitis B Surface Antibody NONREACTIVE Nonreactive [facility] Comment:Nonreactive: < 8.00 mIU/mL Blood Venous blood specimen / Unknown 12/16/2024 11:51 AM EDT 12/16/2024 1:04 PM EDT Corona Jeffery [facility] LAB BLOOD ORDERABLES Final Resul t Performing Organization Address [facility] Co de Phone Number [facility] [address] [place] [phone] * Hemoglobin A1c (12/16/2024 11:51 AM EDT) Pathologist [facility] Hemoglobin A1c 6.0 <6.0 % [facility] Comment:Hemoglobin A1C Refer ence Range Adults: 4.8 - 6.0 % Non diabetic: < 6.0 % Goal: < 7.0 %Additional Action Suggested: > 8.0 %Note: Hemoglobin A1c results are invalid for patients with abnormal amounts of HbF. Blood transfusions may impact the HbA1c concentration in the patient sample. Estimated Average Glucose 126 mg/dL [facility] Comment:eAG = Estimated ave rage glucose which is %A1C expressed asaverage glucose, using the formula of the E9Z-EflxstrWaohtaf Glucose study (ADAG), Diabetes Care, Vol.31,#8,Oct. 2007 Blood Venous blood specimen / Unknown 12/16/2024 11:51 AM EDT 12/16/2024 1:04 PM EDT Corona Jeffery [facility] BLOOD ORDERABLES Final Resul t [facility] [address] [place] [phone] * Lipid Panel, Standard (12/16/2024 11:51 AM EDT) Triglycerides 57 <150 mg/dL [facility] Comment:Desirable Triglyceri de: less than 150 mg/dLBorderline High Triglyceride 150-199 mg/dLHigh Triglyceride: 200-499 mg/dLVery High Triglyceride: greater than or equal to 5OO mg/dL Cholesterol 110 <200 mg/dL [facility] Comment:Desirable Cholestero l: less than 200 mg/dLBorderline High Cholesterol: 200-239 mg/dLHigh Cholesterol: greater than 239 mg/dL LDL Cholesterol Calculated 58 <100 mg/dL [facility] Comment:Desirable LDL: less than 100 mg/dLNear Optimal/Above Optimal LDL: 110- 129 mg/dLBorderline High LDL: 130-159 mg/dLHigh LDL: 160-189 mg/dLVery High LDL: greater than or equal to 190 mg/dL HDL Cholesterol 41 >40 mg/dL [facility] Comment:Desirable HDL: great er than 40 mg/dL Note: This HDL assay may give artificially low results in patients with liver disease. Blood Venous blood specimen / Unknown 12/16/2024 11:51 AM EDT 12/16/2024 1:04 PM EDT Corona Jeffery [facility] BLOOD ORDERABLES Final Resul t [facility] [address] [place] [phone] [phone] * (ABNORMAL) Comprehensive Metabolic Panel (12/16/2024 11:51 AM EDT) Sodium 143 135 - 145 mmol/L [facility] Potassium 3.7 3.3 - 5.1 mmol/L [facility] Chloride 107 96 - 108 mmol/L [facility] Carbon Dioxide 30(H) 22 - 29 mmol/L [facility] Anion Gap 10(L) 12 - 20 [facility] Urea Nitrogen (BUN) 12 9 - 16 mg/dL [facility] Creatinine, Serum 0.66 0.5 - 1.4 mg/dL [facility] Estimated Glomerular Filt Rate >60 [facility] Comment:Chronic Kidney Disea se: Estimated GFR < 60 mL/min/1.51v0Smpidm Kidney Disease: Estimated GFR < 15 mL/min/1.73m2 Glucose 83 60 - 115 mg/dL [facility] Calcium 8.9 8.4 - 10.2 mg/dL [facility] Bilirubin, Total 0.4 0.0 - 1.0 mg/dL [facility] Aspartate Amino Transferase 20 5 - 31 U/L [facility] Alanine Aminotransferase 14 0 - 31 U/L [facility] Total Protein 7.5 6.5 - 8.0 g/dL [facility] Albumin Level 4.2 3.5 - 5.0 g/dL [facility] Alkaline Phosphatase 92 39 - 117 U/L [facility] Blood Venous blood specimen / Unknown 12/16/2024 11:51 AM EDT 12/16/2024 1:04 PM EDT Corona Jeffery [facility] BLOOD ORDERABLES Final Resul t Performing Organization Address City/State/[facility] Co de Phone Number [facility] [address] [place] [phone] [phone] * Mammography Report 1 (10/12/2020 10:00 AM EDT) Anatomical Region Laterality Modality Breast Bilateral Mammography 10/12/2020 10:0 0 AM EDT Narrative 10/13/2020 9:02 AM EDT Refer to the Notes tab for result details [facility] Procedure: Mammography Report 1 Procedure Note ProviderGuevara MD - 05/29/2022 Refer to the Notes tab for result details [facility] Procedure: Mammography Report 1 us Corona LUTZ BI PROCEDURES Final Result * HPV mRNA E6/E7 (05/31/2016 10:15 AM EDT) HPV mRNA E6/E7 Not Detected NOT DETECTED [facility] Comment: This test was performed using the APTIMA(R) HPV Assay ([employer] This assay detects E6/E7 viral messenger RNA (mRNA) from 14 high-risk HPV types (16,18,31,33,35,39,45,51, 52,56,58,59,66,68). For additional information please refer to: http://education.E-House.Lift Agency/faq/YBO821j9 (This link is being provided for informational/ educational purposes only.) Test Performed by [facility], [address] [place] [address] Gerson Neal M.D., Ph.D., Director of Laboratories , [place] [id number] Please note: Effective 11/16/2015, HPV testing will be performed using [employer]'s APTIMA test which targets mRNA. Detecting mRNA instead of DNA, as in older methods, offers significant improvements in specificity. 05/31/2016 10:1 5 AM EDT us Livia Lopez NP HISTORICAL/NON ORDERABLE LABS Fi nal Result [facility] [address] from Last 3 Months or Most Recently Relevant to Health Maintenance [place] [address] [place] [address] C3 Care Teams Singer And Unloader Relationship Specialty Start Date End Date Corona Jeffery ANP [address] [place] [phone] PCP - General Family Medicine 04/10/20
--- OUTSIDE RECORDS SUMMARY | 2025-01-03 10:04 | XMS_ITS | Encounter Summary ---
Author Organization [employer] Address [address] [facility] 7 [place] [address] Care Team Providers Care Electrician Station Assistant Name Role Phone Corona Jeffery SAWYER Primary Care Provider [phone] Encounter Details Date Type Department Care Team (Late st Contact Info) Description 12/29/2024 Orders Only [facility] External Provider, [facility] Social History Tobacco Use Types Packs/Day Years [...] Description 01/16/2025 9:00 AM EST Procedure Visit [address] [address] Yisel Viera CNM [address] [place] [address] 01/24/2025 9:30 AM EST Clinical Support [address] [phone] 03/21/2025 9:00 AM EST Office Visit [address] [phone] Corona Jeffery ANP [address] [place] [address] documented as of this encounter Procedures Procedure Name Priority Date/Time Associated Diagnosis Comments MR KNEE WO CONTRAST LEFT Routine 12/29/2024 10:28 AM EDT documented in this encounter Results * MR Knee w/o Contrast Left (12/29/2024 10:28 AM EDT) Anatomical Region Laterality Modality Magnetic Resonan ce 12/29/2024 10:2 8 AM EDT Narrative 12/30/2024 8:19 AM EDT [address] [address] Magnetic Resonance Report Signed Patient: Kate Solano MR#: [id number] 8 : 1975 Acct:[id number] Age/Sex: 49 / F ADM Date: 12/29/24 Loc: HO.MRI Attending Dr: Dinah Peterson PA-C Ordering Physician: Dinah Peterson PA-C Date of Service: 12/29/24 Procedure(s): MR knee LT wo con Accession Number(s): [id number] cc: Dinah Peterson PA-C; CORONA JEFFERY NP [...] 12/30/24 0816 DD/ 1028 TD/TT: 12/29/24 1045 Shoe Lay Out Planner: MABLE Procedure Note Donotuseinterpreter, Image - 12/30/2024 [place] [address] Magnetic Resonance Report Signed Patient: Norma Solano#: [id number] 8 : 1975Acct:[id number] Age/Sex: 49 / FADM Date: 12/29/24 Loc: HO.MRI Attending Dr: Dinah Peterson PA-C Ordering Physician: Dinah Peterson PA-C Date of Service: 12/29/24 Procedure(s): MR knee LT wo con Accession Number(s): [id number] cc: Dinah Peterson PA-C; CORONA JEFFERY NP [...] 12/30/24 0816 DD/ 1028 TD/TT: 12/29/24 1045 Shoe Lay Out Planner: MABLE [facility] External Provider IMG MRI PROCEDURES Edited Result - Final documented in this encounter Visit Diagnoses Not on filedocumented in this encounter Additional Health Concerns Assessment Noted Time PHQ-9 Depression Total Score: 1 12/14/19 25 10:47 AM EDT documented as of this encounter Care Teams Electrician Station Assistant Relationship Specialty Start Date End Date Corona Jeffery ANP [address] [place] [address] PCP - General Family Medicine 04/10/20 documented as of this encounter
== END 2025-01-03 10:03 | disposition home or self-care (01) ==
LOC: HO.HOS 09:10
PROVIDERS: PCP Nurse Practitioner Primary Care; Visit Provider Physician Assistant
DX: S82.832A Other fracture of upper and lower end of left fibula, initial encounter for closed fracture (principal)
CPT/HCPCS: 99213

== ENCOUNTER → 2025-01-03 09:10 | Outpatient (BNVA) | payer MEDICAID, SELFPAY | PROVIDERS: PCP Nurse Practitioner Primary Care; Visit Provider Physician Assistant | DX: S82.832A Other fracture of upper and lower end of left fibula, initial encounter for closed fracture (principal); W01.10XA Fall on same level from slipping, tripping and stumbling with subsequent striking against unspecified object, initial encounter; Y93.01 Activity, walking, marching and hiking; Y92.9 Unspecified place or not applicable; Y99.9 Unspecified external cause status | CPT/HCPCS: 99212 ==

== ENCOUNTER → 2025-02-14 09:15 | Outpatient (BNV) | payer MEDICAID, SELFPAY | PROVIDERS: PCP Nurse Practitioner Primary Care; Visit Provider Radiology Diagnostic Radiology | DX: E28.39 Other primary ovarian failure (principal) | CPT/HCPCS: 77080 ==

== ENCOUNTER 2025-02-14 09:23 | Outpatient (REF) | payer MEDICAID, SELFPAY ==
--- NOTE | ~2025-02-14 | MM_ITS ---
EXAMINATION: DXA BONE DENSITY AXIAL HISTORY: MENOPAUSAL TECHNIQUE: Evostor Dual energy absorptiometry (DEXA) of the lumbar spine, total left hip, and femoral neck was performed. COMPARISON: None FINDINGS: The bone mineral density of the lumbar spine is 1.146 g/cm2, corresponding to a T-score of -0.3, and a Z-score of -1.6. This is indicative of normal bone mineral density. The bone mineral density of the left total hip is 1.141 g/cm2, corresponding to a T-score of 1.1, and a Z-score of -0.2. This is indicative of normal bone mineral density. The bone mineral density of the left femoral neck is 1.038 g/cm2, corresponding to a T-score of 0, and a Z-score of -0.8. This is indicative of normal bone mineral density. FRACTURE RISK: The FRAX index suggests a ten year probability of major osteoporotic fracture of 2.9%, and of hip fracture 0.1%. MM/XR DEXA axial skeleton IMPRESSION: Based on bone mineral density, and according to World Health Organization (WHO) criteria, the diagnosis is consistent with normal bone mineral density based on lowest T score of -0.3 in the lumbar spine. Statistically, 68% of repeat scans fall within 1 SD (+/- 0.010 g/cm2 for AP spine L1-L4) and 1 SD (+/- 0.012 g/cm2 for femur total) FRAX is a trademark of the [employer]'s [employer] Metabolic Bone Disease, a World Health Organization (WHO) Collaborating Center. Treatment Recommendations: NOF guidelines recommend consideration for treatment in postmenopausal women and men age 50 and older presenting with the following: -A hip or vertebral (clinical or morphometric) fracture. -T-score less than or equal to -2.5 at the femoral neck or spine after appropriate evaluation to exclude secondary causes. -Low bone mass at the hip or spine and a 10-year fracture probability by FRAX of greater than or equal to 3% for hip fracture or greater than or equal to 20% for major osteoporotic fracture based on the [place] adapted WHO algorithm. Other Recommendations: All treatment decisions require clinical judgment and consideration of individual patient factors, including patient preferences, comorbidities, previous drug use, risk factors not captured in the FRAX model (e.g. frailty, falls, vitamin D deficiency, increased bone turnover, interval significant decline in bone density) and possible under or overestimation of fracture risk by FRAX. Additional medical evaluation for secondary cause of low bone mineral density may be appropriate. FUTURE SCAN RECOMMENDATION: People with diagnosed cases of osteoporosis or at high risk for fracture should have regular bone mineral density tests. For patients eligible for Medicare, routine testing is allowed once every 2 years. The testing frequency can be increased to one year for patients who have rapidly progressing disease, those who are receiving or discontinuing medical therapy to restore bone mass, or have additional risk factors. Electronically signed by: Bobbi Dey MD 02/14/2025 10:24 AM THAIS MENDOSA
== END 2025-02-14 09:24 | disposition home or self-care (01) ==
LOC: HO.MAMMO 09:23
PROVIDERS: PCP Nurse Practitioner Primary Care; Visit Provider Nurse Practitioner Primary Care
DX: Z13.820 Encounter for screening for osteoporosis (principal); E28.319 Asymptomatic premature menopause; S82.832D Other fracture of upper and lower end of left fibula, subsequent encounter for closed fracture with routine healing; E55.9 Vitamin D deficiency, unspecified
CPT/HCPCS: 77080

== ENCOUNTER 2025-02-21 08:51 | Outpatient (AMB) | payer MEDICAID, SELFPAY ==
--- OUTSIDE RECORDS SUMMARY | 2025-02-17 11:30 | XMS_ITS | Encounter Summary ---
Author Organization [employer] Address [address] [facility] [address] [place] [address] Care Team Providers Care Sanding Supervisor Name Role Phone Radha Virk SAWYER Primary Care Provider [phone] Reason for Visit * Reason Comments RN BP CHECK Encounter Details Date Type Department Care Team (Latest Contact Info) Description 02/17/2025 11:30 AM EST Clinical Support [facility] [address] [place] [address] Maricel Ledesma RN Essential hypertension Social History Tobacco Use Types [...] Sign Reading Time Taken Comments Blood Pressure 142/90 02/17/2025 11:46 AM EST Pulse 80 02/17/2025 11:46 AM EST Temperature - - Respiratory Rate 20 02/17/2025 11:46 AM EST Oxygen Saturation 100% 02/17/2025 11:46 AM EST Inhaled Oxygen Concentration - - Weight - - Height - - Body Mass Index - - documented in this encounter Progress Notes * Maricel Ledesma, RN - 02/17/2025 11:30 AM EST SUBJECTIVE: Kate Solano is a 50 y.o. year old female who presents for RN BP CHECK Preferred language for medical information: Yi Delivery Coordinator needed: No Recommendations at last visit on 02/03/2025 for BP telephone visit was to increase Losartan to 50 mgand take a home BP log and return for RN BP check in two weeks time. [...] Never BP Readings from Last 4 Encounters: 02/17/25 (!) 142/90 01/24/25 (!) 148/98 12/30/24 (!) 148/108 12/13/24 (!) 150/90 Pulse Readings from Last 4 Encounters: 02/17/25 80 01/24/25 73 12/30/24 80 12/13/24 75 OBJECTIVE: Vitals: 02/17/25 1146 BP: (!) 142/90 BP Location: Left arm Patient Position: Sitting BP Cuff Size: Large adult Pulse: 80 Resp: 20 SpO2: 100% ASSESSMENT: Pt was right on borderline of achieving goal blood pressure of <140/90. The pt did not endorse any side effects of elevated blood pressure or increase in Losartan dose to 50 MG. The pt did bring in several home BP readings and they are displayed below 02/16 156/93 02/13 153/87 02/10 144/77 02/06 139/90 PLAN: Pt advised that today's findings will be sent to PCP for review and if any changes are made or a follow up is needed the pt will be contacted. Pt reminded of next upcoming follow up with PCP on 03/21/2025. Kate Solano advised to continue taking medications as directed and reinforcement of lifestyle modifications including low sodium diet and exercise were reviewed. Kate Solano agreeable to plan discussed at today's visit. Future Appointments Date Time Provider Department Center 03/21/2025 9:00 AM SAWYER [facility] Maricel Ledesma RN [1] Current Outpatient Medications Medication Sig Dispense Refill Blood Pressure kit 1 kit Once per day. 1 kit 0 cholecalciferol (Vitamin D-3) 25 MCG (1000 UT) capsule Take 1 capsule (25 mcg) by mouth Once per day. 90 capsule 0 hydroCHLOROthiazide (HYDRODiuril) 25 MG tablet Take 1 tablet (25 mg) by mouth Once per day. 90 tablet 1 losartan (Cozaar) 50 MG tablet Take 1 tablet (50 mg) by mouth Once per day. 90 tablet 1 meloxicam (Mobic) 15 MG tablet TAKE 1 TABLET (15 MG) BY MOUTH ONCE PER DAY. 30 tablet 0 No current facility-administered medications for this visit. [2] Social History Tobacco Use Smoking Status Never Smokeless Tobacco Never documented in this encounter Plan of Treatment Upcoming Encounters Date Type Department Care Team (Late st Contact Info) Description 03/21/2025 9:00 AM EST Office Visit [facility] [address] [place] [address] Radha Virk ANP [address] [place] [address] documented as of this encounter Visit Diagnoses Diagnosis Essential hypertension Unspecified essential hypertension documented in this encounter Additional Health Concerns Assessment Noted Time PHQ-9 Depression Total Score: 1 12/14/19 25 10:47 AM EDT documented as of this encounter Care Teams Sanding Supervisor Relationship Specialty Start Date End Date Radha Virk ANP [address] [place] [id number] PCP - General Family Medicine 04/10/20 documented as of this encounter
--- NOTE | 2025-02-21 09:03 | A.OFFVIS_ITS ---
Intake Visit Reasons: OV-left displaced fibular head FC-Follow up Intake Note: Kate is a 50 year old female who presents today for a follow up of her Left Fibular Head Fracture DOI: 09/21/24. She continues to ambulate with a crutch and a Wrap Pop Knee Brace. At the last visit she was referred to physical therapy for work on ROM - is working with [facility]. She remains out of work at this time. Patient is working with physical therapy and it is helping slightly. Allergies Seafood Allergy (Mild, Uncoded 11/21/19 17:37) RASH/SWELLING shellfish Allergy (Mild, Uncoded 10/15/24 09:51) Unknown HPI Comments Details: History of Present Illness The patient is a 50 year old female presenting for follow-up of a left displaced fibular head fracture. She continues to experience sequelae including stiffness and pain from a related soft tissue injury. She reports she is making progress with physical therapy and is no longer using crutches, though she will use a knee brace occasionally when it is cold or if her knee is symptomatic after too much exercise. 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 Pain Description - Location: Knee. - Exacerbating Factors: Worsens with excessive exercise and cold weather. - Associated symptoms: Stiffness. 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 - Reports intermittent knee pain which is exacerbated by excessive exercise or cold weather. Physical Exam Exam Exam: Physical Exam - General: The patient is ambulatory without crutches. - Musculoskeletal: On examination of the knee, active extension is good. - Active flexion is limited by stiffness. - There is associated pain on palpation. Const General: cooperative, healthy appearing and no acute distress Resp Effort & Inspection: normal respiratory effort and able to speak in complete sentences Extrem Other: Left knee: Tenderness to palpation over the fibular head. ROM 0-100 degress. NVI. Psych Appearance: grossly normal Mental Status: mental status grossly normal Attitude: cooperative Assessment & Plan Assessment & Plan (1) Closed fracture of head of left fibula: Code(s): S82.832A - Other fracture of upper and lower end of left fibula, initial encounter for closed fracture Category: Medical Plan 1. Left proximal fibular fracture The patient presents for follow-up of a proximal fibular fracture on the left. She continues to experience pain and stiffness, which is attributed to an associated soft tissue injury that may take months to resolve. She is making progress with physical therapy. The patient will continue with physical therapy with a focus on improving range of motion and stiffness. She will be provided an out-of-work note, as her job involves significant walking and standing. Follow-up is scheduled for 6 to 8 weeks to reassess her progress and our goal is to have her return to work following the appointment. Consent Patient was informed and verbally consented to the use of an ambient scribe for clinic note documentation during this visit. Coding Level of Care Code Est Pt Level 3 (72885) Add On Problem Visit Only Diagnoses Closed fracture of head of left fibula S82.837Q
--- OUTSIDE RECORDS SUMMARY | 2025-02-21 09:09 | XMS_ITS | Clinical Summary ---
Author Organization [employer] Address [address] [place] [address] 7 [place] [address] Care Team Providers Care Signal Constructor Name Role Phone Corona Jeffery SAWYER Primary Care Provider [phone] Allergies Active Allergy Reactions Criticality Noted Date [...] 90 tablet 1 12/14/19 25 026 Active cholecalciferol (Vitamin D-3) 25 MCG (1000 UT) capsuleIndicatio ns:Vitamin D deficiency Take 1 capsule (25 mcg) by mouth Once per day. 90 capsule 01/02/20 25 026 Active losartan (Cozaar) 50 MG tabletIndication s:Essential hypertension Take 1 tablet (50 mg) by mouth Once per day. 90 tablet 1 02/04/20 25 Active losartan (Cozaar) 25 MG tabletIndication s:Essential hypertension Take 1 tablet (25 mg) by mouth Once per day. 90 tablet 1 01/02/20 25 025 Discontinued(Re order (will not trigger notification to Pharmacy)) Active Problems Problem Noted Date Diagnosed Date Closed fracture fibula, head, left, initial enco unter 10/01/2024 Assessment & Plan (10/01/2024 9:22 AM EDT): Patient of corona Moose seen today for an ER follow up [place]20[place] [facility] [place] a Displaced [...] Encounters Date Type Department Care Team Description 02/17/2025 11:30 AM EST Clinical Support [facility] [place] [address] Maricel Ledesma RN Essential hypertension 02/17/2025 Travel 02/03/2025 10:30 AM EST Telemedicine [facility] [place] [address] Slime Sauer RN Essential hypertension 02/03/2025 Orders Only [facility] [place] [address] Corona Jeffery ANP Essential hypertension 02/03/2025 Travel 01/24/2025 9:30 AM EST Clinical Support [facility] [place] [address] Slime Sauer, MARTY Essential hypertension 01/24/2025 Travel 01/15/2025 Telephone [facility] [place] [address] Yisel Viera CNM chart prep 01/02/2025 Telephone [facility] [place] [address] Corona Jeffery ANP Medication Question 01/01/2025 Telephone [facility] [place] [address] Corona Jeffery ANP Ivelisse Recall 12/30/2024 9:30 AM EDT Clinical Support [facility] [address] [place] [address] Maricel Ledesma RN Vitamin D deficiency (Primary Dx); Essential hypertension 12/30/2024 Travel 12/29/2024 Orders Only [facility] External Provider, [facility] 12/29/2024 Travel 12/16/2024 Results Follow-Up [facility] [address] [place] [address] Corona Jeffery ANP Lipid Panel, Standard, Comprehensive Metabolic Panel, Hemoglobin A1c, Additional followed-up results: 8 12/13/2024 9:15 AM EDT Office Visit [facility] [address] [place] [address] Corona Jeffery ANP Closed fracture of head of left fibula with routine healing, subsequent encounter (Primary Dx); Healthcare maintenance; Screening for cervical cancer; Screening mammogram for breast cancer; Need for hepatitis B screening test; Routine screening for STI (sexually transmitted infection); Lipid screening; Essential hypertension; Vitamin D deficiency; Benign essential HTN; Premature menopause 12/13/2024 Travel 12/12/2024 Travel 12/12/2024 Telephone [facility] [address] [place] [phone] Corona Jeffery ANP chart prep from Last 3 Months Immunizations Immunization Administration [...] Pulse 80 02/17/2025 11:46 AM EST Temperature 36.7 C (98.1 F) 12/13/2024 9:42 AM EDT Respiratory Rate 20 02/17/2025 11:46 AM EST Oxygen Saturation 100% 02/17/2025 11:46 AM EST Inhaled Oxygen Concentration - - Weight 124 kg (274 lb 2 oz) 12/13/2024 9:42 AM E DT Height 165.7 cm (5' 5.24 ) 12/13/2024 9:42 AM ED T Body Mass Index 45.28 12/13/2024 9:42 AM EDT Plan of Treatment Upcoming Encounters Date Type Department Care Team (Late st Contact Info) Description 03/21/2025 9:00 AM EST Office Visit [facility] [address] [place] [address] Corona Jeffery ANP [address] [place] [address] Health Maintenance Due Date Last Done Comments [...] Years (1 of 1 - PCV) 2023 RSV Patients and Patients Aged 60 years or older (1 - Risk 50-74 years 1-dose series) 2023 Zoster Vaccines (1 of 2) 2023 [...] d or Tdap) 12/03/2030 12/03/2020, 08/12/2010, 09/09/2008 HIV Screening Completed 12/16/2024 Hepatitis C Screening [...] Procedure Name Priority Date/Time Associated Diagnosis Comments BD DEXA AXIAL Routine 02/14/2025 9:25 AM EST Closed fracture of head of left fibula with routine healing, subsequent encounter Premature menopause MR KNEE WO CONTRAST LEFT Routine 12/29/2024 [...] Recently Relevant to Health Maintenance Results * BD DEXA Axial (02/14/2025 9:25 AM EST) Anatomical Region Laterality Modality Body Radiographic Obdulia ging 02/14/2025 9:25 AM EST Narrative 02/14/2025 10:27 AM EST [facility] [address] [place] [address] Mammography Report Signed Patient: Kate Solano MR#: [id number] 8 : 1975 Acct:[id number] Age/Sex: 50 / F ADM Date: 02/14/25 Loc: HO.MAMMO Attending Dr: Corona Jeffery NP Ordering Physician: CORONA JEFFERY NP Results: Date of Service: 02/14/25 Follow Up: Procedure(s): XR DEXA axial skeleton Accession Number(s): [id number] cc: CORONA JEFFERY NP Reason For Exam: MENOPAUSAL EXAMINATION: DXA BONE DENSITY AXIAL HISTORY: MENOPAUSAL TECHNIQUE: Aquafadas Dual energy absorptiometry (DEXA) of the lumbar spine, total left hip, and femoral neck was performed. COMPARISON: None FINDINGS: The bone mineral density of the lumbar spine is 1.146 g/cm2, corresponding to a T-score of -0.3, and a Z-score of -1.6. This is indicative of normal bone mineral density. The bone mineral density of the left total hip is 1.141 g/cm2, corresponding to a T-score of 1.1, and a Z-score of -0.2. This is indicative of normal bone mineral density. The bone mineral density of the left femoral neck is 1.038 g/cm2, corresponding to a T-score of 0, and a Z-score of -0.8. This is indicative of normal bone mineral density. FRACTURE RISK: The FRAX index suggests a ten year probability of major osteoporotic fracture of 2.9%, and of hip fracture 0.1%. MM/XR DEXA axial skeleton IMPRESSION: Based on bone mineral density, and according to World Health Organization (WHO) criteria, the diagnosis is consistent with normal bone mineral density based on lowest T score of -0.3 in the lumbar spine. Statistically, 68% of repeat scans fall within 1 SD (+/- 0.010 g/cm2 for AP spine L1-L4) and 1 SD (+/- 0.012 g/cm2 for femur total) FRAX is a trademark of the [employer]'s [place] for Metabolic Bone Disease, a World Health Organization (WHO) Collaborating Center. Treatment Recommendations: NOF guidelines recommend consideration for treatment in postmenopausal women and men age 50 and older presenting with the following: -A hip or vertebral (clinical or morphometric) fracture. -T-score less than or equal to -2.5 at the femoral neck or spine after appropriate evaluation to exclude secondary causes. -Low bone mass at the hip or spine and a 10-year fracture probability by FRAX of greater than or equal to 3% for hip fracture or greater than or equal to 20% for major osteoporotic fracture based on the [place] adapted WHO algorithm. Other Recommendations: All treatment decisions require clinical judgment and consideration of individual patient factors, including patient preferences, comorbidities, previous drug use, risk factors not captured in the FRAX model (e.g. frailty, falls, vitamin D deficiency, increased bone turnover, interval significant decline in bone density) and possible under or overestimation of fracture risk by FRAX. Additional medical evaluation for secondary cause of low bone mineral density may be appropriate. FUTURE SCAN RECOMMENDATION: People with diagnosed cases of osteoporosis or at high risk for fracture should have regular bone mineral density tests. For patients eligible for Medicare, routine testing is allowed once every 2 years. The testing frequency can be increased to one year for patients who have rapidly progressing disease, those who are receiving or discontinuing medical therapy to restore bone mass, or have additional risk factors. Electronically signed by: Bobbi Dey MD 02/14/2025 10:24 AM EST Dictated By: Bobbi Dey MD Signed By: <Electronically signed by Bobbi Dey MD in OV> 02/14/25 1024 DD/ 4 TD/TT: 02/14/[address] Supervisor: PREM Procedure Note Donotuseinterpreter, Image - 02/14/2025 [facility] [address] [place] [address] Mammography Report Signed Patient: Norma Solano#: [id number] 8 : 1975Acct:[id number] Age/Sex: 50 / FADM Date: 02/14/25 Loc: MAMMO Attending Dr: Corona Jeffery NP Ordering Physician: CORONA JEFFERY NPResults: Date of Service: 02/14/25Follow Up: Procedure(s): XR DEXA axial skeleton Accession Number(s): [id number] cc: CORONA JEFFERY NP Reason For Exam: MENOPAUSAL EXAMINATION: DXA BONE DENSITY AXIAL HISTORY: MENOPAUSAL TECHNIQUE: Aquafadas Dual energy absorptiometry (DEXA) of the lumbar spine, total left hip, and femoral neck was performed. COMPARISON: None FINDINGS: The bone mineral density of the lumbar spine is 1.146 g/cm2, corresponding to a T-score of -0.3, and a Z-score of -1.6. This is indicative of normal bone mineral density. The bone mineral density of the left total hip is 1.141 g/cm2, corresponding to a T-score of 1.1, and a Z-score of -0.2. This is indicative of normal bone mineral density. The bone mineral density of the left femoral neck is 1.038 g/cm2, corresponding to a T-score of 0, and a Z-score of -0.8. This is indicative of normal bone mineral density. FRACTURE RISK: The FRAX index suggests a ten year probability of major osteoporotic fracture of 2.9%, and of hip fracture 0.1%. MM/XR DEXA axial skeleton IMPRESSION: Based on bone mineral density, and according to World Health Organization (WHO) criteria, the diagnosis is consistent with normal bone mineral density based on lowest T score of -0.3 in the lumbar spine. Statistically, 68% of repeat scans fall within 1 SD (+/- 0.010 g/cm2 for AP spine L1-L4) and 1 SD (+/- 0.012 g/cm2 for femur total) FRAX is a trademark of the [employer] [place] for Metabolic Bone Disease, a World Health Organization (WHO) Collaborating Center. Treatment Recommendations: NOF guidelines recommend consideration for treatment in postmenopausal women and men age 50 and older presenting with the following: -A hip or vertebral (clinical or morphometric) fracture. -T-score less than or equal to -2.5 at the femoral neck or spine after appropriate evaluation to exclude secondary causes. -Low bone mass at the hip or spine and a 10-year fracture probability by FRAX of greater than or equal to 3% for hip fracture or greater than or equal to 20% for major osteoporotic fracture based on the [place] adapted WHO algorithm. Other Recommendations: All treatment decisions require clinical judgment and consideration of individual patient factors, including patient preferences, comorbidities, previous drug use, risk factors not captured in the FRAX model (e.g. frailty, falls, vitamin D deficiency, increased bone turnover, interval significant decline in bone density) and possible under or overestimation of fracture risk by FRAX. Additional medical evaluation for secondary cause of low bone mineral density may be appropriate. FUTURE SCAN RECOMMENDATION: People with diagnosed cases of osteoporosis or at high risk for fracture should have regular bone mineral density tests. For patients eligible for Medicare, routine testing is allowed once every 2 years. The testing frequency can be increased to one year for patients who have rapidly progressing disease, those who are receiving or discontinuing medical therapy to restore bone mass, or have additional risk factors. Electronically signed by: Bobbi Dey MD 02/14/2025 10:24 AM EST RP Dictated By: Bobbi Dey MD Signed By: <Electronically signed by Bobbi Dey MD in OV> 02/14/25 1024 DD/ 0925 TD/TT: 02/14/[address] Supervisor: PREM us Corona Jeffery ANP IMG DXA PROCEDURES Final Result * MR Knee w/o Contrast Left (12/29/2024 10:28 AM EDT) Anatomical Region Laterality Modality Magnetic Resonan ce 12/29/2024 10:2 8 AM EDT Narrative 12/30/2024 8:19 AM EDT [place] [address] Magnetic Resonance Report Signed Patient: Kate Solano MR#: [id number] 8 : 1975 Acct:[id number] Age/Sex: 49 / F ADM Date: 12/29/24 Loc: HO.MRI Attending Dr: Dinah Peterson PA-C Ordering Physician: Dinah Peterson PA-C Date of Service: 12/29/24 Procedure(s): MR knee LT wo con Accession Number(s): [id number] cc: Dinah Peterson PA-C; CORONA JEFFERY NP [...] 12/30/24 0816 DD/ 1028 TD/TT: 12/29/[address] Supervisor: MABLE Procedure Note Donotuseinterpreter, Image - 12/30/[address] [address] Magnetic Resonance Report Signed Patient: Norma Solano#: [id number] 8 : 1975Acct:[id number] Age/Sex: 49 / FADM Date: 12/29/24 Loc: HO.MRI Attending Dr: Dinah Peterson PA-C Ordering Physician: Dinah Peterson PA-C Date of Service: 12/29/24 Procedure(s): MR knee LT wo con Accession Number(s): [id number] cc: Dinah Peterson PA-C; CORONA JEFFERY NP [...] 12/30/24 0816 DD/ 1028 TD/TT: 12/29/[address] Supervisor: MABLE [facility] External Provider IMG MRI PROCEDURES Edited Result - Final * (ABNORMAL) Vitamin D, 25-Hydroxy, Total, Immunoassay (12/16/2024 11:51 AM EDT) Vitamin D 25-OH Total 17.0(L) >30 ng/mL [facility] Comment: Health Based Reference Values*< 20 ng/mL [id number] ng/mL Insufficient> 30 ng/mL Sufficient*Curt SHAFER. N [...] 12/16/2024 1:04 PM EDT us Corona Jeffery [facility] BLOOD ORDERABLES Final Resul t Performing Organization Address [facility] Phone Number [facility] [address] [place] [phone] * Albumin, Random Urine W/Creatinine (12/16/2024 11:51 AM EDT) Creatinine, Urine 101.97 mg/dL [facility] Microalbumin Urine 15.0 mg/L [facility] Microalbum Creatinine Ratio Ur 14.7 <30 ug/mg cr [facility] Comment:Albumin/Creatinine R atio Reference Ranges: Normal: < 30 ug/mg creatinine Microalbuminuria: 30 - 300 ug/mg creatinineClinical Albuminuria: > 300 ug/mg creatinine Urine (Urine, Random) 12/16/2024 11:51 AM EDT 12/16/2024 1:21 PM EDT us Corona Jeffery [facility] URINE ORDERABLES Final Resul t Performing Organization Address [facility] de Phone Number [facility] [address] [place] [phone] * Hepatitis C Antibody with Reflex to HCV, RNA, Quantitative, Real-Time PCR (12/16/2024 11:51 AM EDT) Hepatitis C Antibody Nonreactive Nonreactive [facility] Comment:Antibodies to HCV no t detected; does not exclude early acuteHCV infection. Blood Venous blood specimen / Unknown 12/16/2024 11:51 AM EDT 12/16/2024 1:04 PM EDT us Corona Jeffery [facility] BLOOD ORDERABLES Final Resul t Performing Organization Address [facility] de Phone Number [facility] [address] [place] [phone] [phone] * Hepatitis B surface antigen, EIA (12/16/2024 11:51 AM EDT) Pathologist [facility] Hepatitis B Surface Ag Negative Negative [facility] Blood Venous blood specimen / Unknown 12/16/2024 11:51 AM EDT 12/16/2024 1:04 PM EDT Corona Jeffery [facility] BLOOD ORDERABLES Final Resul t Performing Organization Address City/[facility]/ZIP Co de Phone Number [facility] [address] [place] [phone] * Hepatitis B Core Antibody, Total (12/16/2024 11:51 AM EDT) [facility] Hepatitis B Core Antibody Nonreactive Nonreactive [facility] Blood Venous blood specimen / Unknown 12/16/2024 11:51 AM EDT 12/16/2024 1:04 PM EDT Corona Jeffery [facility] BLOOD ORDERABLES Final Resul t Performing Organization Address [facility] Co de Phone Number [facility] [address] [place] [phone] * HIV-1/2 Antigen and Antibodies, Fourth Generation, with Reflexes (12/16/2024 11:51 AM EDT) Pathologist [facility] HIV AB/AG Nonreactive Nonreactive [facility] Comment:HIV-1 p24 Ag and/or HIV-1/HIV-2 Ab not detected.A test result that is nonreactive does not exclude thepossibility of exposure to or infection with HIV-1 and/orHIV-2. Nonreactive results in this assay for individualswith prior exposure to HIV-1 and/or HIV-2 may be due toantigen and antibody levels that are below the limit ofdetection of this assay.The [employer] HIV Ag/Ab Combo assay result andsupplemental assay results should be interpreted inconjunction with the patient's clinical presentation,history and other laboratory results. If the results areinconsistent with clinical evidence, additional testing issuggested to confirm the result. Blood Venous blood specimen / Unknown 12/16/2024 11:51 AM EDT 12/16/2024 1:04 PM EDT Corona Jeffery [facility] BLOOD ORDERABLES Final Resul t Performing Organization Address [facility] Co de Phone Number [facility] [address] [place] [phone] * Hepatitis B Surface Antibody, Qualitative (12/16/2024 11:51 AM EDT) ~Hepatitis B Surface Antibody NONREACTIVE Nonreactive [facility] Comment:Nonreactive: < 8.00 mIU/mL Blood Venous blood specimen / Unknown 12/16/2024 11:51 AM EDT 12/16/2024 1:04 PM EDT Corona Jeffery ANP LAB BLOOD ORDERABLES Final Resul t Performing Organization Address [facility] de Phone Number [facility] [address] [place] [phone] * Hemoglobin A1c (12/16/2024 11:51 AM EDT) Hemoglobin A1c 6.0 <6.0 % [facility] Comment:Hemoglobin A1C Refer ence Range Adults: 4.8 - 6.0 % Non diabetic: < 6.0 % Goal: < 7.0 %Additional Action Suggested: > 8.0 %Note: Hemoglobin A1c results are invalid for patients with abnormal amounts of HbF. Blood transfusions may impact the HbA1c concentration in the patient sample. Estimated Average Glucose 126 mg/dL [facility] Comment:eAG = Estimated ave rage glucose which is %A1C expressed asaverage glucose, using the formula of the V1F-XrqfcwaDrqsqyn Glucose study (ADAG), Diabetes Care, Vol.31,#8,2007 Blood Venous blood specimen / Unknown 12/16/2024 11:51 AM EDT 12/16/2024 1:04 PM EDT Corona Jeffery ANP LAB BLOOD ORDERABLES Final Resul t Performing Organization Address [facility] Co de Phone Number [facility] [address] [place] [phone] [phone] * Lipid Panel, Standard (12/16/2024 11:51 AM EDT) Triglycerides 57 <150 mg/dL [facility] Comment:Desirable Triglyceri de: less than 150 mg/dLBorderline High Triglyceride 150-199 mg/dLHigh Triglyceride: 200-499 mg/dLVery High Triglyceride: greater than or equal to 5OO mg/dL Cholesterol 110 <200 mg/dL [facility] Comment:Desirable Cholestero l: less than 200 mg/dLBorderline High Cholesterol: 200-239 mg/dLHigh Cholesterol: greater than 239 mg/dL LDL Cholesterol Calculated 58 <100 mg/dL [facility] Comment:Desirable LDL: less than 100 mg/dLNear Optimal/Above Optimal LDL: 110- 129 mg/dLBorderline High LDL: 130-159 mg/dLHigh LDL: 160-189 mg/dLVery High LDL: greater than or equal to 190 mg/dL HDL Cholesterol 41 >40 mg/dL [facility] Comment:Desirable HDL: great er than 40 mg/dL Note: This HDL assay may give artificially low results in patients with liver disease. Blood Venous blood specimen / Unknown 12/16/2024 11:51 AM EDT 12/16/2024 1:04 PM EDT Corona Jeffery ANP LAB BLOOD ORDERABLES Final Resul t Performing Organization Address [facility]/ZIP Co de Phone Number [facility] [address] [place] [phone] * (ABNORMAL) Comprehensive Metabolic Panel (12/16/2024 11:51 AM EDT) Sodium 143 135 - 145 mmol/L [facility] Potassium 3.7 3.3 - 5.1 mmol/L [facility] Chloride 107 96 - 108 mmol/L [facility] Carbon Dioxide 30(H) 22 - 29 mmol/L [facility] Anion Gap 10(L) 12 - 20 [facility] Urea Nitrogen (BUN) 12 9 - 16 mg/dL [facility] Creatinine, Serum 0.66 0.5 - 1.4 mg/dL [facility] Estimated Glomerular Filt Rate >60 [facility] Comment:Chronic Kidney Disea se: Estimated GFR < 60 mL/min/[id number] Kidney Disease: Estimated GFR < 15 mL/min/1.73m2 Glucose 83 60 - 115 mg/dL [facility] Calcium 8.9 8.4 - 10.2 mg/dL [facility] Bilirubin, Total 0.4 0.0 - 1.0 mg/dL [facility] Aspartate Amino Transferase 20 5 - 31 U/L [facility] Alanine Aminotransferase 14 0 - 31 U/L [facility] Total Protein 7.5 6.5 - 8.0 g/dL [facility] Albumin Level 4.2 3.5 - 5.0 g/dL [facility] Alkaline Phosphatase 92 39 - 117 U/L [facility] Blood Venous blood specimen / Unknown 12/16/2024 11:51 AM EDT 12/16/2024 1:04 PM EDT [facility] BLOOD ORDERABLES Final Resul t [facility] [address] [place] [phone] * Mammography Report 1 (10/12/2020 10:00 AM EDT) Anatomical Region Laterality Modality Breast Bilateral Mammography 10/12/2020 10:0 0 AM EDT Narrative 10/13/2020 9:02 AM EDT Refer to the Notes tab for result details [facility] Procedure: Mammography Report 1 Procedure Note ProviderGuevara MD - 05/29/2022 Refer to the Notes tab for result details [facility] Procedure: Mammography Report 1 Corona JACQUES IMGail BI PROCEDURES Final Result * HPV mRNA E6/E7 (05/31/2016 10:15 AM EDT) HPV mRNA E6/E7 Not Detected NOT DETECTED [facility] Comment: This test was performed using the APTIMA(R) HPV Assay ([employer] This assay detects E6/E7 viral messenger RNA (mRNA) from 14 high-risk HPV types (16,18,31,33,35,39,45,51, 52,56,58,59,66,68). For additional information please refer to: http://education.[employer]/faq/YCM268z8 (This link is being provided for informational/ educational purposes only.) Test Performed by [employer] [place], [address] [facility], [address] [place] [phone] Gerson Neal M.D., Ph.D., Director of Laboratories , [place] [id number] Please note: Effective 11/16/2015, HPV testing will be performed using [employer]'s APTIMA test which targets mRNA. Detecting mRNA instead of DNA, as in older methods, offers significant improvements in specificity. 05/31/2016 10:1 5 AM EDT Livia Lopez NP HISTORICAL/NON ORDERABLE LABS Fi nal Result [facility] [address] from Last 3 Months or Most Recently Relevant to Health Maintenance Insurance C3 Care Teams Signal Constructor Relationship Specialty Start Date End Date Corona Jeffery ANP [address] [place] [phone] PCP - General Family Medicine 04/10/20
--- OUTSIDE RECORDS SUMMARY | 2025-02-21 09:09 | XMS_ITS | Encounter Summary ---
Author Organization [employer] Address [address] [facility] [address] [place] [address] Care Team Providers Care Knitting Machine Mechanic Name Role Phone Radha Virk SAWYER Primary Care Provider [phone] Encounter Details Date Type Department Care Team (Latest Contact Info) Description 02/17/2025 Travel Social History Tobacco Use Types Packs/Day [...] Description 03/21/2025 9:00 AM EST Office Visit [facility] [address] [place] [address] Radha Vikr ANP [address] [place] [address] documented as of this encounter Visit Diagnoses Not on filedocumented in this encounter Additional Health Concerns Assessment Noted Time PHQ-9 Depression Total Score: 1 12/14/19 25 10:47 AM EDT documented as of this encounter Care Teams Knitting Machine Mechanic Relationship Specialty Start Date End Date Radha Virk ANP [address] [place] [address] PCP - General Family Medicine 04/10/20 documented as of this encounter
--- OUTSIDE RECORDS SUMMARY | 2025-02-21 09:09 | XMS_ITS | Encounter Summary ---
Author Organization [employer] Address [address] [facility] [address] [place] [address] Care Team Providers Care Waterproof Bag Sewer Name Role Phone Radha Virk Primary Care Provider [phone] Encounter Details Date Type Department Care Team (Latest Contact Info) Description 12/16/2024 Results Follow-Up [facility] [address] [place] [address] Radha Virk ANP [address] [place] [address] Lipid Panel, Standard, Comprehensive Metabolic Panel, Hemoglobin A1c, Additional followed-up results: 8 Social History Tobacco Use Types Packs/Day Years [...] AM EDT documented as of this encounter Progress Notes * SAWYER Peña - 02/14/2025 3:32 PM EST DEXA normal 02/13/25 documented in this encounter Miscellaneous Notes * Result Encounter Note - SAWYER Peña - 02/18/2025 4:19 PM EST Please send pt normal imaging letter * Result Encounter Note - SAWYER Peña [...] Description 03/21/2025 9:00 AM EST Office Visit [facility] [address] [place] [address] Radha Virk ANP [address] [place] [address] documented as of this encounter Visit Diagnoses Not on filedocumented in this encounter Additional Health Concerns Assessment Noted Time PHQ-9 Depression Total Score: 1 12/14/19 25 10:47 AM EDT documented as of this encounter Care Teams Waterproof Bag Sewer Relationship Specialty Start Date End Date Radha Virk ANP [address] [place] [address] PCP - General Family Medicine 04/10/20 documented as of this encounter
== END 2025-02-21 09:15 | disposition home or self-care (01) ==
LOC: HO.HOS 08:52
PROVIDERS: PCP Nurse Practitioner Primary Care; Visit Provider Physician Assistant
DX: S82.832A Other fracture of upper and lower end of left fibula, initial encounter for closed fracture (principal)
CPT/HCPCS: 99213

== ENCOUNTER → 2025-02-21 08:51 | Outpatient (BNVA) | payer MEDICAID, SELFPAY | PROVIDERS: PCP Nurse Practitioner Primary Care; Visit Provider Physician Assistant | DX: S82.832D Other fracture of upper and lower end of left fibula, subsequent encounter for closed fracture with routine healing (principal) | CPT/HCPCS: 99212 ==